=== PATIENT | male | born 1985 | race Caucasian/White ===

== ENCOUNTER 2016-08-21 10:40 | Emergency (ER) | payer SELFPAY ==
[2016-08-21] MEDS ORDERED: Sodium Chloride 0.9% 10 ML Syringe FLUSH PRN (11:18)
[2016-08-21] MEDS ORDERED: Ketorolac 30 MG/ML SDV IVPUSH ONE (11:19)
[2016-08-21] MEDS ORDERED: HYDROmorphone 1 MG/ML Syringe IVPUSH ONE (11:19)
[2016-08-21] MEDS ORDERED: Sodium Chloride 0.9% 1,000 ML IV SCH (11:30)
--- NOTE | 2016-08-21 11:40 | EDM.PDOC ---
ED HISTORY OF PRESENT ILLNESS - General Chief Complaint: Chest Pain Stated Complaint: CHEST PAIN/RESPIRATORY PROBLEMS Time Seen by Provider: 08/21/16 11:03 Source of Information: Reports: Patient History Limitations: Reports: No limitations - History of Present Illness INITIAL COMMENTS - FREE TEXT/NARRATIVE: The patient complains of back pain and shortness of breath. The pain radiates out to his chest. He also has been coughing up some phlegm. He also has some pain in the RUQ and right lower chest area. He was an alcoholic for over 10 years. He recently moved into a trailer that had mice and birds. He also has some anxiety issues. He feels warm like he has a fever but his temp is normal. He has no nausea or vomiting but his appetite is decreased. He did not injure his back and he has no numbness or weakness. He does smoke. He has no lung problems such as asthma. Timing/Duration: Reports: Week(s): Severity: severe Location, General: Reports: chest, back Quality: Reports: Sharp Improves with: Reports: None Worsens with: Reports: Breathing Associated Symptoms (General): Reports: chest pain, cough, cough w sputum, fever /chills, shortness of breath. Denies: headaches, nausea/vomiting - Related Data Allergies/ADRs: Allergies Allergy/AdvReac Type Severity Reaction Status Date / Time grass pollen Allergy Swelling Verified 08/21/16 10:54 Home Meds: Home Meds Naproxen [Naprosyn] 500 mg PO Q12HR #20 tablet 11/08/15 [Rx] Cyclobenzaprine [Flexeril] 10 mg PO TID PRN #20 tablet 08/21/16 [Rx] oxyCODONE HCl/Acetaminophen [Percocet 5-325 mg Tablet] 1 - 2 each PO Q6HR PRN # 20 tablet 08/21/16 [Rx] Past Medical History - Past Health History Medical/Surgical History: Denies Medical/Surgical History HEENT History: Reports: Impaired vision Other HEENT History: wears eyeglasses Cardiovascular History: Reports: Hypertension Other Cardiovascular History: states is recovering alcoholic and has HTN from the alcohol. Respiratory History: Reports: Bronchitis, recurrent, Pneumonia, recurrent Gastrointestinal History: Reports: GERD Other Gastrointestinal History: "history of a stomach ulcer" Other Genitourinary History: states has to drink cranberry juice every day. Musculoskeletal History: Reports: Back pain, chronic, Fracture Neurological History: Reports: Concussion, Head trauma, Migraines, Seizure Psychiatric History: Reports: Anxiety, Depression, Emotional problems, Hallucinations Hematologic History: Reports: Iron deficiency Other Hematologic History: states "I take iron pills daily." - Infectious Disease History Infectious Disease History: Reports: Chicken pox Social & Family History - Tobacco Use Smoking Status *Q: Current Every Day Smoker Years of Tobacco use: 14 Packs/Tins Daily: 0.5 Used Tobacco, but Quit: No Second Hand Smoke Exposure: Yes - Caffeine Use Caffeine Use: Reports: Coffee - Alcohol Use Days Per Week of Alcohol Use: 2 Number of Drinks Per Day: 12 Total Drinks Per Week: 24 - Recreational Drug Use Recreational Drug Use: Yes Drug Use in Last 12 Months: No Recreational Drug Type: Reports: Marijuana/Hashish Recreational Drug Use Frequency: Not Used In Over 6 Months - Living Situation & Occupation Living situation: Reports: with significant other Occupation: employed ED ROS GENERAL - Review of Systems Review Of Systems: See Below Constitutional: Reports: fever, weakness, fatigue. Denies: chills HEENT: Reports: No symptoms Respiratory: Reports: Shortness of Breath, Cough Cardiovascular: Reports: Chest pain Endocrine: Reports: no symptoms GI/Abdominal: Reports: No symptoms : Reports: no symptoms Musculoskeletal: Reports: back pain Skin: Reports: no symptoms Neurological: Reports: No Symptoms ED EXAM, GENERAL - Physical Exam Exam: See Below Exam Limited By: No limitations General Appearance: alert, no apparent distress Ears: normal external exam Nose: normal inspection Head: atraumatic, normocephalic Neck: normal inspection Respiratory/Chest: no respiratory distress, lungs clear, normal breath sounds Cardiovascular: regular rate, rhythm, no edema, no murmur GI/Abdominal: soft, non tender, no organomegaly, no mass Back Exam: other (Pain upon palpation to the right and left upper back) Neurological: alert, oriented, no motor/sensory deficits EKG INTERPRETATION EKG Date: 08/21/16 Time: 10:49 Rhythm: NSR Rate (beats/min): 95 [place]: normal P-wave: present QRS: normal ST-T: other (Normal early repol) QT: normal Course - Vital Signs Last Recorded V/S: Last Vital Signs Temp 98.2 F 08/21/16 10:40 Pulse 98 08/21/16 10:40 Resp 22 H 08/21/16 10:40 BP 135/87 08/21/16 10:40 Pulse Ox 98 08/21/16 10:40 - Orders/Labs/Meds Orders: Active Orders 24 hr Category Date Time Status Cardiac Monitoring [RC] . DIRECTED Care 08/21/16 11:18 Active EKG 12 Lead [EKG Documentation Completion] [RC] STAT Care 08/21/16 10:45 Active Oxygen Therapy [RC] PRN Care 08/21/16 11:18 Active Peripheral IV Care [RC] . DIRECTED Care 08/21/16 11:18 Active Sodium Chloride 0.9% [Normal Saline] 1,000 ml Med 08/21/16 11:30 Active IV .BOLUS Sodium Chloride 0.9% [Saline Flush] Med 08/21/16 11:18 Active 10 ml FLUSH ASDIRECTED PRN Peripheral IV Insertion Adult [OM.PC] Stat Oth 08/21/16 11:18 Ordered Medication Orders Sodium Chloride (Normal Saline) 1,000 mls @ 1,000 mls/hr IV .BOLUS ELIZABETH Last Admin: 08/21/16 12:22 Dose: 1,000 mls/hr Sodium Chloride (Saline Flush) 10 ml FLUSH ASDIRECTED PRN PRN Reason: Keep Vein Open Last Admin: 08/21/16 12:15 Dose: 10 ml Labs: Laboratory Tests 08/21/16 08/21/16 08/21/16 Range/Units 11:55 11:55 11:55 WBC 7.03 (4.23-9.07) K/mm3 RBC 5.09 (4.63-6.08) M/mm3 Hgb 15.6 (13.7-17.5) gm/L Hct 44.8 (40.1-51.0) % MCV 88.0 (79.0-92.2) fl MCH 30.6 (25.7-32.2) pg MCHC 34.8 (32.2-35.5) g/dl RDW Std Deviation 42.8 (35.1-43.9) fL Plt Count 216 (163-337) K/mm3 MPV 9.6 (9.4-12.3) fl Neut % (Auto) 51.6 (34.0-67.9) % Lymph % (Auto) 39.0 (21.8-53.1) % [place] % (Auto) 7.8 (5.3-12.2) % Eos % (Auto) 1.4 (0.8-7.0) Baso % (Auto) 0.1 (0.1-1.2) % Neut # 3.62 (1.78-5.38) K/mm3 Lymph # 2.74 (1.32-3.57) K/mm3 [place] # 0.55 (0.30-0.82) K/mm3 Eos # 0.10 (0.04-0.54) K/mm3 Baso # 0.01 (0.01-0.08) K/mm3 D-Dimer, Quantitative 0.19 (0.19-0.59) mg/L Sodium 143 (136-145) mEq/L Potassium 3.7 (3.5-5.1) mEq/L Chloride 104 (98-107) mEq/L Carbon Dioxide 29 (21-32) mEq/L Anion Gap 13.7 (5-15) BUN 7 (7-18) mg/dL Creatinine 0.9 (0.7-1.3) mg/dL Est Cr Clr Drug Dosing 118.92 mL/min Estimated GFR (MDRD) > 60 (>60) mL/min BUN/Creatinine Ratio 7.8 L (14-18) Glucose 99 (74-106) mg/dL Calcium 9.0 (8.5-10.1) mg/dL Total Bilirubin 0.7 (0.2-1.0) mg/dL AST 59 H (15-37) U/L ALT 81 H (16-63) U/L Alkaline Phosphatase 96 (46-116) U/L Troponin I < 0.017 (0.00-0.056) ng/mL Total Protein 7.6 (6.4-8.2) g/dl Albumin 4.7 (3.4-5.0) g/dl Globulin 2.9 gm/dL Albumin/Globulin Ratio 1.6 (1-2) Meds: Medications Generic Name Dose Route Start Last Admin Trade Name Freq PRN Reason Stop Dose Admin Sodium Chloride 1,000 mls @ 1,000 mls/hr 08/21/16 11:30 08/21/16 12:22 Normal Saline IV 1,000 mls/hr .BOLUS ELIZABETH Administration Sodium Chloride 10 ml 08/21/16 11:18 08/21/16 12:15 Saline Flush FLUSH 10 ml ASDIRECTED PRN Administration Keep Vein Open Discontinued Medications Generic Name Dose Route Start Last Admin Trade Name Flip PRN Reason Stop Dose Admin Hydromorphone HCl 1 mg 08/21/16 11:19 08/21/16 12:20 Dilaudid IVPUSH 08/21/16 11:20 1 mg ONETIME ONE Administration Ketorolac Tromethamine 30 mg 08/21/16 11:19 08/21/16 12:18 Toradol IVPUSH 08/21/16 11:20 30 mg ONETIME ONE Administration - Re-Assessments/Exams Free Text/Narrative Re-Assessment/Exam: 08/21/16 11:41 I ordered an IV NS 1L bolus, dilaudid 1mg IV, toradol 30mg IV, EKG, CXR, and labs. His EKG shows a NSR with no acute changes. 08/21/16 13:35 His CXR shows no pneumonia. His CBC looks good. His liver enzymes are slightly elevated. His troponin is negative. His influenza is negative. He feels better. I will give him some thing for his back pain. I feel that he has a URI with cough and back strain. Departure - Departure Time of Disposition: 13:40 Disposition: Home, Self-Care 01 Condition: good Clinical Impression: Viral URI with cough Thoracic myofascial strain Qualifiers: Encounter type: initial encounter Qualified Code(s): S29.019A - Strain of muscle and tendon of unspecified wall of thorax, initial encounter Prescriptions: oxyCODONE HCl/Acetaminophen [Percocet 5-325 mg Tablet] 1 - 2 each PO Q6HR PRN # 20 tablet PRN Reason: Pain Cyclobenzaprine [Flexeril] 10 mg PO TID PRN #20 tablet PRN Reason: Pain Referrals: Katy Manzo [Physician] - 1 Week Forms: ED Department Discharge Additional Instructions: Take the flexeril and percocet as needed for pain. Please return if you are worse. - My Orders Last 24 Hours: My Active Orders 08/21/16 10:45 EKG 12 Lead [EKG Documentation Completion] [RC] STAT 08/21/16 11:18 Cardiac Monitoring [RC] . DIRECTED Oxygen Therapy [RC] PRN Peripheral IV Care [RC] . DIRECTED Sodium Chloride 0.9% [Saline Flush] 10 ml FLUSH ASDIRECTED PRN Peripheral IV Insertion Adult [OM.PC] Stat 08/21/16 11:30 Sodium Chloride 0.9% [Normal Saline] 1,000 ml IV .BOLUS - Assessment/Plan Last 24 Hours: My Active Orders 08/21/16 10:45 EKG 12 Lead [EKG Documentation Completion] [RC] STAT 08/21/16 11:18 Cardiac Monitoring [RC] . DIRECTED Oxygen Therapy [RC] PRN Peripheral IV Care [RC] . DIRECTED Sodium Chloride 0.9% [Saline Flush] 10 ml FLUSH ASDIRECTED PRN Peripheral IV Insertion Adult [OM.PC] Stat 08/21/16 11:30 Sodium Chloride 0.9% [Normal Saline] 1,000 ml IV .BOLUS
--- NOTE | 2016-08-21 13:21 | CR ---
Chest: Two views of the chest were obtained. Comparison: Previous chest x-ray of 02/21/16. Heart size and mediastinum are normal. Lungs are clear. Mild scoliosis noted within the spine. Impression: 1. Incidental finding. Nothing acute is identified on two-view chest x-ray. Diagnostic code #1
[2016-08-21 13:56] VITALS: BP 139/77
== END 2016-08-21 14:00 | disposition home or self-care (01) ==
LOC: JD.ED 10:40
DX: S29.019A Strain of muscle and tendon of unspecified wall of thorax, initial encounter (principal); J06.9 Acute upper respiratory infection, unspecified; I10 Essential (primary) hypertension; K21.9 Gastro-esophageal reflux disease without esophagitis; F41.8 Other specified anxiety disorders; F17.210 Nicotine dependence, cigarettes, uncomplicated; X58.XXXA Exposure to other specified factors, initial encounter
CPT/HCPCS: 36415; 71020; 80053; 84484; 85025; 85379; 87804; 93005; 96361; 96374; 96375; 99284; J1170; J1885; J7040; J7050; 99285

== ENCOUNTER 2016-11-11 19:19 | Emergency (ER) | payer MEDICAID, OTHER ==
[2016-11-11 19:30] VITALS: BP 148/111
--- NOTE | 2016-11-11 19:31 | EDM.PDOC ---
ED HPI GENERAL MEDICAL PROBLEM - General Chief Complaint: Lower Extremity Injury/Pain Stated Complaint: right foot injury Time Seen by Provider: 11/11/16 19:31 - History of Present Illness INITIAL COMMENTS - FREE TEXT/NARRATIVE: 31-year-old male presents emergency room with a right foot injury. Yesterday the patient dropped a large toolbox weighing well over 200 pounds onto his right foot. He has been not able to bear weight on this since then. Given it time it has not improved. Patient also has an abrasion on his lateral ankle. No other injuries sustained with this incident. Right Feet Pain Score (Numeric/FACES): 9 - Related Data Allergies Allergy/AdvReac Type Severity Reaction Status Date / Time grass pollen Allergy Swelling Verified 08/21/16 10:54 Home Meds: Home Meds Naproxen [Naprosyn] 500 mg PO Q12HR #20 tablet 11/08/15 [Rx] Past Medical History - Past Health History Medical/Surgical History: Denies Medical/Surgical History HEENT History: Reports: Impaired Vision Other HEENT History: wears eyeglasses Cardiovascular History: Reports: Hypertension Other Cardiovascular History: states is recovering alcoholic and has HTN from the alcohol. Respiratory History: Reports: Bronchitis, Recurrent, Pneumonia, Recurrent Gastrointestinal History: Reports: GERD Other Gastrointestinal History: "history of a stomach ulcer" Other Genitourinary History: states has to drink cranberry juice every day. Musculoskeletal History: Reports: Back Pain, Chronic, Fracture Neurological History: Reports: Concussion, Head Trauma, Migraines, Seizure Psychiatric History: Reports: Anxiety, Depression, Emotional Problems, Hallucinations Hematologic History: Reports: Iron Deficiency Other Hematologic History: states "I take iron pills daily." - Infectious Disease History Infectious Disease History: Reports: Chicken Pox Social & Family History - Tobacco Use Smoking Status *Q: Current Every Day Smoker Years of Tobacco use: 14 Packs/Tins Daily: 0.5 Used Tobacco, but Quit: No Second Hand Smoke Exposure: Yes - Caffeine Use Caffeine Use: Reports: Coffee - Alcohol Use Days Per Week of Alcohol Use: 2 Number of Drinks Per Day: 12 Total Drinks Per Week: 24 - Recreational Drug Use Recreational Drug Use: Yes Drug Use in Last 12 Months: No Recreational Drug Type: Reports: Marijuana/Hashish Recreational Drug Use Frequency: Not Used In Over 6 Months - Living Situation & Occupation Living situation: Reports: with Significant Other Occupation: Employed Review of Systems - Review of Systems Review Of Systems: See Below Constitutional: Reports: No Symptoms Respiratory: Reports: No Symptoms Cardiovascular: Reports: No Symptoms GI/Abdominal: Reports: No Symptoms ED EXAM, GENERAL - Physical Exam Exam: See Below Exam Limited By: No Limitations General Appearance: Alert, No Apparent Distress, Other (He has significant pain with any sort of motion with his right foot) Respiratory/Chest: No Respiratory Distress, Lungs Clear, Normal Breath Sounds Cardiovascular: Regular Rate, Rhythm, No Edema, No Murmur Extremities: Other (Examination of his right lower leg reveals an abrasion in near the mid foot in the area above the proximal metatarsals this is exquisitely tender the patient has intact neurovascular sensation of the foot dorsalis pedis posterior tibial pulses are equal and appropriate. Sensation is intact in the distal foot. Active range of motion passive range of motion are limited because of discomfort. Palpation around the ankle is nontender other than the tenderness around the abrasion over the lateral malleolus.) Course - Vital Signs Last Recorded V/S: Last Vital Signs Temp 36.8 C 11/11/16 19:29 Pulse 103 H 11/11/16 19:29 Resp 20 11/11/16 19:29 BP 148/111 H 11/11/16 19:29 Pulse Ox 96 11/11/16 19:29 - Orders/Labs/Meds Orders: Active Orders 24 hr Category Date Time Status Ankle Min 3V Rt [CR] Stat Exams 11/11/16 19:45 Taken Foot Comp Min 3V Rt [CR] Stat Exams 11/11/16 19:45 Taken Durable Medical Equipment for Discharge [DME for Oth 11/11/16 22:16 Ordered Discharge] [COMM] Stat - Re-Assessments/Exams Free Text/Narrative Re-Assessment/Exam: 11/11/16 22:17 X-ray examination the foot and ankle reveals no acute changes to the ankle patient has multiple fractures in the foot mostly involving second third and fourth bases of the metatarsals these are minimally displaced I cannot exclude a fracture at the base of the fifth metatarsal. Possible fracture on the mid cuneiform but I think this is less likely. Case and x-rays reviewed with Dr. Mcgrath who recommends not weight bearing and followup in the office tomorrow. Patient will be discharged with crutches he had a posterior splint applied by me normal neurovascular status afterwards he will remain nonweightbearing with the aid of crutches. He'll be discharged with [place] 5/325 dispensed from the machine in the waiting room #20 one or 2 every 6 hours as needed. Departure - Departure Time of Disposition: 22:21 Disposition: Home, Self-Care 01 Clinical Impression: Metatarsal fracture - Discharge Information Instructions: Metatarsal Fracture Referrals: Herminia Mckay NP [Primary Care Provider] - Rigoberto Mcgrath MD [Physician] - Forms: ED Department Discharge Additional Instructions: Return to the emergency room with any questions or problems. Followup with Dr. Mcgrath tomorrow call first thing in the morning for an appointment. You've been started on [place] this is a pain medication take one or 2 every 6 hours as needed for pain allow 12 hours after using this medication before driving or returning to work. If using this medication on a regular basis use a stool softener as it can cause constipation. Use the crutches all the time. Keep the splint on all the time if he developed numbness or tingling or foot loosen the Giacomo wrap. He may also return to the emergency room for recheck if you get a persistent throbbing sensation or worsening pain. - My Orders Last 24 Hours: My Active Orders 11/11/16 19:45 Ankle Min 3V Rt [CR] Stat Foot Comp Min 3V Rt [CR] Stat 11/11/16 22:16 Durable Medical Equipment for Discharge [DME for Discharge] [COMM] Stat - Assessment/Plan Last 24 Hours: My Active Orders 11/11/16 19:45 Ankle Min 3V Rt [CR] Stat Foot Comp Min 3V Rt [CR] Stat 11/11/16 22:16 Durable Medical Equipment for Discharge [DME for Discharge] [COMM] Stat
--- NOTE | 2016-11-12 13:03 | CR ---
Right foot: Four views of the right foot were obtained. Comparison: No previous study. Joint spaces are preserved. Fractures are identified within the base of the second, third and fourth metatarsals. No additional fracture or other abnormality is seen. Soft tissue swelling is noted. Impression: 1. Fractures within the base of the second, third and fourth metatarsals. 2. Soft tissue swelling. Diagnostic code #3
--- NOTE | 2016-11-12 13:03 | CR ---
Right ankle: Four views of the right ankle were obtained. Comparison: No previous study. Ankle mortise is symmetric. No acute fracture, dislocation or other bony abnormality is seen. Mild soft tissue swelling appears to be present. Impression: 1. Mild soft tissue swelling. No acute bony abnormality is identified on right ankle study. Diagnostic code #2
== END 2016-11-11 22:30 | disposition home or self-care (01) ==
LOC: JD.ED 19:19
DX: S92.321A Displaced fracture of second metatarsal bone, right foot, initial encounter for closed fracture (principal); S92.331A Displaced fracture of third metatarsal bone, right foot, initial encounter for closed fracture; S92.341A Displaced fracture of fourth metatarsal bone, right foot, initial encounter for closed fracture; I10 Essential (primary) hypertension; K21.9 Gastro-esophageal reflux disease without esophagitis; F41.9 Anxiety disorder, unspecified; F32.9 Major depressive disorder, single episode, unspecified; F17.210 Nicotine dependence, cigarettes, uncomplicated; W20.8XXA Other cause of strike by thrown, projected or falling object, initial encounter
CPT/HCPCS: 29515; 73610-26-RT; 73610-RT; 73630-26-RT; 73630-RT; 99283-25

== ENCOUNTER 2017-04-08 09:38 | Emergency (ER) | payer MEDICAID ==
[2017-04-08 11:09] VITALS: BP 145/92
--- NOTE | 2017-04-08 13:01 | EDM.PDOC ---
ED HPI GENERAL MEDICAL PROBLEM - General Chief Complaint: Back Pain or Injury Stated Complaint: UPPER BACK AND LT ARM PAIN WITH NUMBNESS Time Seen by Provider: 04/08/17 10:52 Source of Information: Reports: Patient, RN Notes Reviewed - History of Present Illness INITIAL COMMENTS - FREE TEXT/NARRATIVE: 32-year-old male comes in with left back pain and also numbness and tingling of the left upper extremity. He states she's been having the back pain for 2 years , no recent injury. Ever he has had numbness and tingling of the left arm and hand since last evening. That continues today. He's worried about possible heart attack. No chest pain or difficulty breathing. Left Upper Back Pain Score (Numeric/FACES): 9 - Related Data Allergies Allergy/AdvReac Type Severity Reaction Status Date / Time grass pollen Allergy Swelling Verified 04/08/17 09:47 Home Meds: Home Meds Naproxen [Naprosyn] 500 mg PO Q12HR #20 tablet 11/08/15 [Rx] Past Medical History - Past Health History Medical/Surgical History: Denies Medical/Surgical History HEENT History: Reports: Impaired Vision Other HEENT History: wears eyeglasses Cardiovascular History: Reports: Hypertension Other Cardiovascular History: states is recovering alcoholic and has HTN from the alcohol. Respiratory History: Reports: Bronchitis, Recurrent, Pneumonia, Recurrent Gastrointestinal History: Reports: GERD Other Gastrointestinal History: "history of a stomach ulcer" Other Genitourinary History: states has to drink cranberry juice every day. Musculoskeletal History: Reports: Back Pain, Chronic, Fracture Neurological History: Reports: Concussion, Head Trauma, Migraines, Seizure Psychiatric History: Reports: Anxiety, Depression, Emotional Problems, Hallucinations Hematologic History: Reports: Iron Deficiency Other Hematologic History: states "I take iron pills daily." - Infectious Disease History Infectious Disease History: Reports: Chicken Pox Social & Family History - Tobacco Use Smoking Status *Q: Current Every Day Smoker Years of Tobacco use: 18 Packs/Tins Daily: 0.5 Used Tobacco, but Quit: No Second Hand Smoke Exposure: No - Caffeine Use Caffeine Use: Reports: Coffee - Alcohol Use Days Per Week of Alcohol Use: 7 Number of Drinks Per Day: 20 Total Drinks Per Week: 140 Date of Last Drink: 04/08/17 Time of Last Drink: 08:00 - Recreational Drug Use Recreational Drug Use: No Drug Use in Last 12 Months: No Recreational Drug Type: Reports: Marijuana/Hashish Recreational Drug Use Frequency: Not Used In Over 6 Months - Living Situation & Occupation Living situation: Reports: with Significant Other Occupation: Employed ED ROS GENERAL - Review of Systems Review Of Systems: See Below Constitutional: Denies: Fever, Chills, Diaphoresis HEENT: Reports: No Symptoms Respiratory: Denies: Shortness of Breath, Pleuritic Chest Pain Cardiovascular: Denies: Chest Pain GI/Abdominal: Denies: Abdominal Pain, Nausea, Vomiting Musculoskeletal: Reports: Neck Pain (Mild left base), Back Pain (Left-sided). Denies: Arm Pain Skin: Reports: No Symptoms Neurological: Reports: Numbness, Tingling (Left upper extremity left hand and left upper extremity). Denies: Weakness ED EXAM,LOWER BACK PAIN/INJURY - Physical Exam Exam: See Below General Appearance: Other (My first walked into the room he was sleeping soundly , did not easily arouse, does not appear to be in acute pain) Eye Exam: Bilateral Eye: PERRL Head: Atraumatic. No: Facial Swelling Neck: Supple Respiratory/Chest: No Respiratory Distress, Lungs Clear. No: Rhonchi, Wheezing Cardiovascular: Regular Rate, Rhythm Back Exam: Other (There is tenderness of the left mid back and left lower back) . No: Vertebral Tenderness Extremities: Normal Inspection (, no visible spasm), Normal Range of Motion Neurological: Alert, No Motor/Sensory Deficits, Oriented x 3 Skin Exam: Warm, Dry, Normal Color Course - Vital Signs Last Recorded V/S: Last Vital Signs Temp 96.8 F 04/08/17 09:47 Pulse 96 04/08/17 09:47 Resp 18 04/08/17 09:47 BP 145/92 H 04/08/17 09:47 Pulse Ox 98 04/08/17 09:47 - Orders/Labs/Meds Orders: Active Orders 24 hr Category Date Time Status EKG 12 Lead [EKG Documentation Completion] [RC] STAT Care 04/08/17 11:06 Active CBC WITH AUTO DIFF [HEME] Stat Lab 04/08/17 11:06 Ordered COMPREHENSIVE METABOLIC PN,CMP [CHEM] Stat Lab 04/08/17 11:06 Ordered - Re-Assessments/Exams Free Text/Narrative Re-Assessment/Exam: 04/08/17 11:25. I did tell patient that numbness and tingling is not a cardiac symptom and therefore I felt confident to is not having heart attack. However I advised to do check an EKG and checks labs to make sure chemistries are okay. This was all ordered. Short time later I was informed that patient had left the department without notifying anyone of his departure. Departure - Departure Time of Disposition: 11:30 Disposition: Home, Self-Care 01 Clinical Impression: Paresthesia of left upper extremity Back pain Qualifiers: Back pain location: low back pain Chronicity: acute Back pain laterality: left - Discharge Information Referrals: PCP,None [Primary Care Provider] - Forms: ED Department Discharge - My Orders Last 24 Hours: My Active Orders 04/08/17 11:06 EKG 12 Lead [EKG Documentation Completion] [RC] STAT CBC WITH AUTO DIFF [HEME] Stat COMPREHENSIVE METABOLIC PN,CMP [CHEM] Stat - Assessment/Plan Last 24 Hours: My Active Orders 04/08/17 11:06 EKG 12 Lead [EKG Documentation Completion] [RC] STAT CBC WITH AUTO DIFF [HEME] Stat COMPREHENSIVE METABOLIC PN,CMP [CHEM] Stat
== END 2017-04-08 11:30 | disposition home or self-care (01) ==
LOC: JD.ED 09:38
DX: M54.5 Low back pain (principal); R20.2 Paresthesia of skin; F17.210 Nicotine dependence, cigarettes, uncomplicated
CPT/HCPCS: 99283; 99284-25

== ENCOUNTER 2017-04-10 13:05 | Emergency (ER) | payer MEDICAID ==
[2017-04-10 13:16] VITALS: BP 137/92
[2017-04-10] MEDS ORDERED: Lactated Ringers 1,000 ML IV ONE (14:32)
[2017-04-10] MEDS ORDERED: Ondansetron 4 MG/2 ML SDV IVPUSH ONE (14:33)
[2017-04-10] MEDS ORDERED: Sodium Chloride 0.9% 10 ML Syringe FLUSH PRN (14:33)
[2017-04-10] MEDS ORDERED: Ketorolac 30 MG/ML SDV IVPUSH ONE (14:33)
[2017-04-10] MEDS ORDERED: LORazepam 2 MG/ML MDV IVPUSH ONE (15:50)
[2017-04-10 15:51] LABS: ACETAMINOPHEN 0 ug/mL (10-30)
[2017-04-10] MEDS ORDERED: Folic Acid 1 MG Tab PO ONE (16:02)
--- NOTE | 2017-04-10 16:59 | EDM.PDOCBH ---
ED HPI GENERAL MEDICAL PROBLEM - General Chief Complaint: Drug or Alcohol Abuse Stated Complaint: ALCOHOL DETOX Time Seen by Provider: 04/10/17 14:00 Source of Information: Reports: Patient, Family History Limitations: Reports: No Limitations - History of Present Illness INITIAL COMMENTS - FREE TEXT/NARRATIVE: 32-year-old male presents with his mother and his significant other for evaluation and treatment of alcoholism. Patient was not initially very forthcoming with information with his mother and significant other in the room. I asked him to leave and obtain a history from patient's himself when he was more forthcoming with information. Per patient reports that he will go on binges of drinking. He states that he was sober for about 4-6 weeks prior to Saturday. States on Saturday he drank at least 30 shooters. He reports he does have trouble with alcoholism and is an alcoholic. He states that after a cates he will often drink the following days to help him feel better. He states he was drinking daily since Saturday. Reports he had about 5 or 6 shots today prior to coming to the ER. He reports that he has sobered up nearly every month. Reports he has drank since around the age of 18. Prefers to drink hard liquor. Patient reports he did have a seizure about 2 years ago while in [place]. He states he almost always has shakes when he madan up. He reports that he always has abdominal pain in the left lower side, even when sober. He states that he is having hallucinations of hearing things and seeing things. Reports that he sees shadows. He states they have these all the time with he is intoxicated or sober. He also reports nausea and vomiting. He states currently he has pain "everywhere ". States he has a "vice on his head." He also reports feeling like his head is floating. He states he has numbness and tingling in the extremities and has been feeling this for quite some time. Patient reports he does feel depressed about his current situation. If he does think about suicide but has no active suicide plan. He denies any homicidal thoughts or plan. He denies any drug use. States he smokes about a third of a pack a day. Middle Back Pain Score (Numeric/FACES): 7 - Related Data Allergies Allergy/AdvReac Type Severity Reaction Status Date / Time grass pollen Allergy Swelling Verified 04/10/17 13:16 Home Meds: Home Meds Naproxen [Naprosyn] 500 mg PO Q12HR #20 tablet 11/08/15 [Rx] Past Medical History - Past Health History Medical/Surgical History: Denies Medical/Surgical History HEENT History: Reports: Impaired Vision Other HEENT History: wears eyeglasses Cardiovascular History: Reports: Hypertension Other Cardiovascular History: states is recovering alcoholic and has HTN from the alcohol. Respiratory History: Reports: Bronchitis, Recurrent, Pneumonia, Recurrent Gastrointestinal History: Reports: GERD Other Gastrointestinal History: "history of a stomach ulcer" Other Genitourinary History: states has to drink cranberry juice every day. Musculoskeletal History: Reports: Back Pain, Chronic, Fracture Neurological History: Reports: Concussion, Head Trauma, Migraines, Seizure Psychiatric History: Reports: Addiction, Anxiety, Depression, Emotional Problems , Hallucinations Hematologic History: Reports: Iron Deficiency Other Hematologic History: states "I take iron pills daily." - Infectious Disease History Infectious Disease History: Reports: Chicken Pox Social & Family History - Tobacco Use Smoking Status *Q: Current Every Day Smoker Years of Tobacco use: 18 Packs/Tins Daily: 0.5 Used Tobacco, but Quit: No Second Hand Smoke Exposure: No - Caffeine Use Caffeine Use: Reports: Coffee, Energy Drinks - Alcohol Use Days Per Week of Alcohol Use: 7 Number of Drinks Per Day: 12 Total Drinks Per Week: 84 Date of Last Drink: 04/10/17 Time of Last Drink: 12:00 - Recreational Drug Use Recreational Drug Use: No Drug Use in Last 12 Months: No Recreational Drug Type: Reports: Marijuana/Hashish Recreational Drug Use Frequency: Not Used In Over 6 Months - Living Situation & Occupation Living situation: Reports: with Significant Other Occupation: Employed ED ROS GENERAL - Review of Systems Review Of Systems: See Below Constitutional: Denies: Fever, Chills GI/Abdominal: Reports: Nausea Neurological: Reports: Headache, Numbness, Seizure (none recently reports he had a seizure about 2 years ago), Tingling, Tremors Psychiatric: Reports: Depression, Hallucinations (auditory and visual - reports seeing shadows), Suicidal Ideation (thinks about suicide but not actively suicidal; no plan). Denies: Homicidal Ideation ED EXAM, BEHAVIORAL HEALTH - Physical Exam Exam: See Below Exam Limited By: Intoxication General Appearance: Alert, WD/WN, No Apparent Distress Eye Exam: Bilateral Eye: PERRL Ears: Normal External Exam Throat/Mouth: Normal Inspection, Normal Lips, Normal Voice, No Airway Compromise Respiratory/Chest: No Respiratory Distress, Lungs Clear, Normal Breath Sounds Cardiovascular: Normal Peripheral Pulses, Regular Rate, Rhythm, No Murmur GI/Abdominal: Normal Bowel Sounds, Soft, Non-Tender Neurological: Alert, Normal Mood/Affect, Normal Cognition Psychiatric: Alert, Normal Affect, Suicidal Thoughts, Auditory Hallucinations, Visual Hallucinations. No: Agitated, Non-Communicative, Poor Eye Contact, Homicidal Thoughts, Suicidal Plan, Threatening Behavior Skin Exam: Warm, Dry, Normal color COURSE, BEHAVIORAL HEALTH COMP - Course Vital Signs: Last Vital Signs Temp 37.0 C 04/10/17 13:12 Pulse 97 04/10/17 13:12 Resp 16 04/10/17 13:12 BP 137/92 H 04/10/17 13:12 Pulse Ox 99 04/10/17 13:12 Orders, Labs, Meds: Active Orders 24 hr Category Date Time Status Cardiac Monitoring [RC] . DIRECTED Care 04/10/17 14:33 Active Peripheral IV Care [RC] . DIRECTED Care 04/10/17 14:34 Active Peripheral IV Insertion Adult [OM.PC] Routine Oth 04/10/17 14:32 Ordered Laboratory Tests 04/10/17 04/10/17 04/10/17 Range/Units 13:15 13:15 13:15 WBC 8.26 (4.23-9.07) K/mm3 RBC 5.21 (4.63-6.08) M/mm3 Hgb 16.1 (13.7-17.5) gm/L Hct 45.3 (40.1-51.0) % MCV 86.9 (79.0-92.2) fl MCH 30.9 (25.7-32.2) pg MCHC 35.5 (32.2-35.5) g/dl RDW Std Deviation 42.0 (35.1-43.9) fL Plt Count 266 (163-337) K/mm3 MPV 9.5 (9.4-12.3) fl Neutrophils % (Manual) 44 (40-60) % Band Neutrophils % 0 (0-10) % Lymphocytes % (Manual) 46 H (20-40) % Atypical Lymphs % 6 % Monocytes % (Manual) 3 (2-10) % Eosinophils % (Manual) 0 L (0.8-7.0) % Basophils % (Manual) 1 (0.2-1.2) Platelet Estimate Adequate Plt Morphology Comment Normal RBC Morph Comment Normal PT 10.8 (8.0-13.0) SECONDS INR 0.99 APTT 26 (22-36) SECONDS Sodium 147 H (136-145) mEq/L Potassium 3.5 (3.5-5.1) mEq/L Chloride 107 (98-107) mEq/L Carbon Dioxide 28 (21-32) mEq/L Anion Gap 15.5 H (5-15) BUN 12 (7-18) mg/dL Creatinine 1.1 (0.7-1.3) mg/dL Est Cr Clr Drug Dosing 99.55 mL/min Estimated GFR (MDRD) > 60 (>60) mL/min BUN/Creatinine Ratio 10.9 L (14-18) Glucose 101 (74-106) mg/dL Calcium 8.8 (8.5-10.1) mg/dL Magnesium 2.1 (1.8-2.4) mg/dl Total Bilirubin 0.5 (0.2-1.0) mg/dL AST 28 (15-37) U/L ALT 36 (16-63) U/L Alkaline Phosphatase 95 (46-116) U/L C-Reactive Protein < 0.2 (<1.0) mg/dL Total Protein 7.7 (6.4-8.2) g/dl Albumin 4.4 (3.4-5.0) g/dl Globulin 3.3 gm/dL Albumin/Globulin Ratio 1.3 (1-2) Lipase 133 (73-393) U/L Vitamin B12 (193-986) pg/ml Folate (8.6-58.9) ng/mL TSH 3rd Generation 1.295 (0.358-3.74) uIU/mL Urine Color (Yellow) Urine Appearance (Clear) Urine pH (5.0-8.0) Ur Specific Parker (1.005-1.030) Urine Protein (Negative) Urine Glucose (UA) (Negative) Urine Ketones (Negative) Urine Occult Blood (Negative) Urine Nitrite (Negative) Urine Bilirubin (Negative) Urine Urobilinogen (0.2-1.0) Ur Leukocyte Esterase (Negative) Urine RBC (0-5) /hpf Urine WBC (0-5) /hpf Ur Epithelial Cells (0-5) /hpf Urine Bacteria (FEW) /hpf Urine Mucus (FEW) /hpf Salicylates (2.8-20) mg/dL Urine Opiates Screen (NEGATIVE) Ur Buprenorphine Scrn (NEGATIVE) Ur Oxycodone Screen (NEGATIVE) Urine Methadone Screen (NEGATIVE) Ur Propoxyphene Screen (NEGATIVE) Acetaminophen 0 L (10-30) ug/mL Ur Barbiturates Screen (NEGATIVE) Ur Tricyclics Screen (NEGATIVE) Ur Phencyclidine Scrn (NEGATIVE) Ur Amphetamine Screen (NEGATIVE) U Methamphetamines Scrn (NEGATIVE) U Benzodiazepines Scrn (NEGATIVE) U Cocaine Metab Screen (NEGATIVE) U Marijuana (THC) Screen (NEGATIVE) Ethyl Alcohol 0.37 (0.00) gm% 04/10/17 04/10/17 04/10/17 Range/Units 13:15 14:14 14:14 WBC (4.23-9.07) K/mm3 RBC (4.63-6.08) M/mm3 Hgb (13.7-17.5) gm/L Hct (40.1-51.0) % MCV (79.0-92.2) fl MCH (25.7-32.2) pg MCHC (32.2-35.5) g/dl RDW Std Deviation (35.1-43.9) fL Plt Count (163-337) K/mm3 MPV (9.4-12.3) fl Neutrophils % (Manual) (40-60) % Band Neutrophils % (0-10) % Lymphocytes % (Manual) (20-40) % Atypical Lymphs % % Monocytes % (Manual) (2-10) % Eosinophils % (Manual) (0.8-7.0) % Basophils % (Manual) (0.2-1.2) Platelet Estimate Plt Morphology Comment RBC Morph Comment PT (8.0-13.0) SECONDS INR APTT (22-36) SECONDS Sodium (136-145) mEq/L Potassium (3.5-5.1) mEq/L Chloride (98-107) mEq/L Carbon Dioxide (21-32) mEq/L Anion Gap (5-15) BUN (7-18) mg/dL Creatinine (0.7-1.3) mg/dL Est Cr Clr Drug Dosing mL/min Estimated GFR (MDRD) (>60) mL/min BUN/Creatinine Ratio (14-18) Glucose (74-106) mg/dL Calcium (8.5-10.1) mg/dL Magnesium (1.8-2.4) mg/dl Total Bilirubin (0.2-1.0) mg/dL AST (15-37) U/L ALT (16-63) U/L Alkaline Phosphatase (46-116) U/L C-Reactive Protein (<1.0) mg/dL Total Protein (6.4-8.2) g/dl Albumin (3.4-5.0) g/dl Globulin gm/dL Albumin/Globulin Ratio (1-2) Lipase (73-393) U/L Vitamin B12 341 (193-986) pg/ml Folate 2.9 L (8.6-58.9) ng/mL TSH 3rd Generation (0.358-3.74) uIU/mL Urine Color Yellow (Yellow) Urine Appearance Clear (Clear) Urine pH 7.0 (5.0-8.0) Ur Specific Parker 1.010 (1.005-1.030) Urine Protein Negative (Negative) Urine Glucose (UA) Negative (Negative) Urine Ketones Negative (Negative) Urine Occult Blood Negative (Negative) Urine Nitrite Negative (Negative) Urine Bilirubin Negative (Negative) Urine Urobilinogen 0.2 (0.2-1.0) Ur Leukocyte Esterase Negative (Negative) Urine RBC Not seen (0-5) /hpf Urine WBC Not seen (0-5) /hpf Ur Epithelial Cells 0-5 (0-5) /hpf Urine Bacteria Not seen (FEW) /hpf Urine Mucus Not seen (FEW) /hpf Salicylates 2.3 L (2.8-20) mg/dL Urine Opiates Screen Negative (NEGATIVE) Ur Buprenorphine Scrn Negative (NEGATIVE) Ur Oxycodone Screen Negative (NEGATIVE) Urine Methadone Screen Negative (NEGATIVE) Ur Propoxyphene Screen Negative (NEGATIVE) Acetaminophen (10-30) ug/mL Ur Barbiturates Screen Negative (NEGATIVE) Ur Tricyclics Screen Negative (NEGATIVE) Ur Phencyclidine Scrn Negative (NEGATIVE) Ur Amphetamine Screen Negative (NEGATIVE) U Methamphetamines Scrn Negative (NEGATIVE) U Benzodiazepines Scrn Negative (NEGATIVE) U Cocaine Metab Screen Negative (NEGATIVE) U Marijuana (THC) Screen Negative (NEGATIVE) Ethyl Alcohol (0.00) gm% Medications Discontinued Medications Generic Name Dose Route Start Last Admin Trade Name Flip PRN Reason Stop Dose Admin Folic Acid 1 mg 04/10/17 16:02 04/10/17 17:00 Folic Acid PO 04/10/17 16:03 Not Given ONETIME ONE Lactated Ringer's 1,000 mls @ 999 mls/hr 04/10/17 14:32 04/10/17 14:45 Ringers, Lactated IV 04/10/17 15:32 999 mls/hr .BOLUS ONE Administration Ketorolac Tromethamine 30 mg 04/10/17 14:33 04/10/17 14:45 Toradol IVPUSH 04/10/17 14:34 30 mg ONETIME ONE Administration Lorazepam 1 mg 04/10/17 15:50 04/10/17 15:54 Ativan IVPUSH 04/10/17 15:51 1 mg ONETIME ONE Administration Ondansetron HCl 4 mg 04/10/17 14:33 04/10/17 14:45 Zofran IVPUSH 04/10/17 14:34 4 mg ONETIME ONE Administration Sodium Chloride 10 ml 04/10/17 14:33 04/10/17 14:43 Saline Flush FLUSH 10 ml ASDIRECTED PRN Administration Keep Vein Open Re-Assessment/Re-Exam: 17:20 Patient's labs have returned. His alcohol is elevated at 0.37. He will likely need about 24 hours to become completely sober. His folic acid is low at 2.9. He reports to me that he takes folic acid daily. He also states he takes some fish oil daily and Xanax. I did give him some folic acid here in the ER. At this point I discussed with the patient as disposition. I feel he would be a good candidate to come in to the hospital for detox with subsequent care at another facility whether that be outpatient or inpatient. I informed him that most the time with these detox we have them see on-call psychiatry and a substance abuse counselor. They then determine whether he should go after his hospitalization. Given his history of seizures, tremors and hallucinations he is possible to have DTs. I did inform that DTs are deadly. I encouraged him to come into the hospital for detox with likely follow-up care at another facility. Patient reports to me he does not want to come in to the hospital. He states he is here only because his significant other and mother are forcing him here. He states that he madan up nearly every month on his own without any problems. He would like to go home tonight and sober up. He states hospitals make him anxious and he does not want to stay here. He states he would like to follow-up with [facility] or [facility] as an outpatient but he does not want to come [facility] the [facility]. At this point I do not feel he is committable. He states he is depressed and states he thinks about suicide but he is not actively suicidal and has no plan. I did educate him that his failure rate is extremely high to try detox on his own. He will likely not be able to accomplish this. He states that he has done this several times before and can do it again. At this point I have no reason to make the patient come in for treatment. He was encouraged to return if his symptoms change or worsen. Otherwise he can follow-up with [facility] and [facility] as an outpatient. I discussed this with the patient's mother and his significant other. I informed them if they would like to go through the committal process they can talk to the states real estate attorney. His mom does state that they contacted [facility] and they were instructed to come to the ER. They were given paperwork for to start the committal process. I encouraged them to do this. I informed them that I cannot make him stay in the hospital [facility]. At this point he would like to go home. He does have a safe ride home. He does have some and to monitor him at home. Therefore I feel he can safely go home but he is instructed to return the ER if symptoms change or worsen. Departure - Departure Time of Disposition: 17:22 Disposition: Home, Self-Care 01 Condition: Fair Clinical Impression: Alcohol abuse Alcohol intoxication Qualifiers: Complication of substance-induced condition: uncomplicated Qualified Code(s): F10.120 - Alcohol abuse with intoxication, uncomplicated - Discharge Information Instructions: Alcohol Intoxication, [id number] Referrals: PCP,None [Primary Care Provider] - Additional Instructions: Follow-up with [facility]. Saturday through at 8 AM they have open evaluation. Go there right away at 8 AM for an evaluation. I also recommend you see a substance abuse counselor such as [facility]. Please call [phone] to schedule with her. We recommend that you stop drinking alcohol. you will have a happier and healthier life if you stop drinking alcohol. Continues taking your folic acid supplementation. I also recommend you establish with a primary care provider if you do not have one. Recommend Dr. Palacio at the [facility]. Please call [phone] to schedule him. Please return to the ER if your symptoms change or worsen. - My Orders Last 24 Hours: My Active Orders 04/10/17 14:32 Peripheral IV Insertion Adult [OM.PC] Routine 04/10/17 14:33 Cardiac Monitoring [RC] . DIRECTED 04/10/17 14:34 Peripheral IV Care [RC] . DIRECTED - Assessment/Plan Last 24 Hours: My Active Orders 04/10/17 14:32 Peripheral IV Insertion Adult [OM.PC] Routine 04/10/17 14:33 Cardiac Monitoring [RC] . DIRECTED 04/10/17 14:34 Peripheral IV Care [RC] . DIRECTED
== END 2017-04-10 17:19 | disposition home or self-care (01) ==
LOC: JD.ED 13:05
DX: F10.120 Alcohol abuse with intoxication, uncomplicated (principal); Y90.1 Blood alcohol level of 20-39 mg/100 ml; I10 Essential (primary) hypertension; F17.210 Nicotine dependence, cigarettes, uncomplicated; Z91.048 Other nonmedicinal substance allergy status
CPT/HCPCS: 36415; 80053; 80306; 81001; 82607; 82746; 83690; 83735; 84443; 85025; 85610; 85730; 86140; 96361; 96374; 96375; 99285; G0480; J1885; J2060; J2405; J7050; J7120

== ENCOUNTER 2017-07-05 11:49 | Emergency (ER) | payer MEDICAID ==
[2017-07-05 12:08] VITALS: BP 129/84
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
--- NOTE | 2017-07-05 13:19 | CT ---
CT facial bones Technique: Multiple axial sections through the facial bones were obtained. Reconstructed coronal and sagittal images were also obtained. Comparison: No previous facial bone study is available. Findings: Minimal mucosal thickening noted inferiorly within both maxillary sinuses. Mastoid sinuses and other paranasal sinuses are clear. No facial bone fracture is identified. Numerous dental caries are present. Several lucencies are also seen around the roots of several teeth and difficult to exclude abscess if patient has correlating symptoms. Impression: 1. Dental disease as noted above. 2. Minimal sinus findings within the maxillary sinuses which are incidental. 3. No acute facial bone fracture is identified. Diagnostic code #3
--- NOTE | 2017-07-05 13:22 | CT ---
Head CT Technique: Multiple axial sections through the brain were obtained. Intravenous contrast was not utilized. Comparison: Prior head CT study of 09/16/13. Findings: Ventricles along the basal cisterns and sulci over the convexities are within normal limits for the patient's age. No abnormal parenchymal densities are seen. No evidence of intracranial hemorrhage. No midline shift or mass effect is seen. Bone window settings were reviewed which shows no acute calvarial abnormality. Soft tissue swelling is noted within the right periorbital region. Impression: 1. Soft tissue swelling within the right periorbital region. 2. No acute intracranial abnormality is appreciated. Diagnostic code #2
--- NOTE | 2017-07-05 14:14 | CR ---
Right hand: Four views of the right hand were obtained as well as an additional lateral view of the fifth finger. Joint spaces are maintained. No acute fracture or other bony abnormality is seen. Impression: 1. No abnormality is identified on right hand exam. Diagnostic code #1
== END 2017-07-05 13:54 | disposition home or self-care (01) ==
LOC: JD.ED 11:49
DX: S09.22XA Traumatic rupture of left ear drum, initial encounter (principal); S51.852A Open bite of left forearm, initial encounter; S69.91XA Unspecified injury of right wrist, hand and finger(s), initial encounter; Z91.09 Other allergy status, other than to drugs and biological substances; Y04.2XXA Assault by strike against or bumped into by another person, initial encounter
CPT/HCPCS: 70450; 70450-26; 70486; 70486-26; 73130-26-RT; 73130-RT; 99284; 99284-25

== ENCOUNTER 2017-10-28 12:13 | Emergency (ER) | payer MEDICAID ==
[2017-10-28] MEDS ORDERED: Sodium Chloride 0.9% 10 ML Syringe FLUSH PRN (12:21)
[2017-10-28] MEDS ORDERED: Thiamine 100 MG Tab PO ONE (12:21)
[2017-10-28] MEDS ORDERED: Folic Acid 1 MG Tab PO ONE (12:21)
[2017-10-28] MEDS ORDERED: LORazepam 2 MG/ML SDV IVPUSH ONE (12:21)
[2017-10-28 12:30] VITALS: BP 136/92
[2017-10-28] MEDS ORDERED: Sodium Chloride 0.9% 1,000 ML IV SCH (12:30)
[2017-10-28] MEDS ORDERED: Pantoprazole 40 MG Vial IVPUSH ONE (12:44)
[2017-10-28] MEDS ORDERED: Alum Hydrox/Mag Hydrox/Simeth 30 ML, Lidocaine 2% 15 ML PO ONE ×2 (12:44)
--- NOTE | 2017-10-28 12:52 | EDM.PDOCBH ---
ED HPI GENERAL MEDICAL PROBLEM - General Chief Complaint: Drug or Alcohol Abuse Stated Complaint: ALCOHOL WITHDRAWAL Time Seen by Provider: 10/28/17 12:30 Source of Information: Reports: Patient, Other (girlfriend) History Limitations: Reports: No Limitations - History of Present Illness INITIAL COMMENTS - FREE TEXT/NARRATIVE: Patient is a 32-year-old male presents ED complaining of chronic alcohol abuse with suicidal thoughts. Patient is wishing inpatient detox and evaluation for alcohol abuse and also anxiety/depression. Patient is currently on clonazepam for anxiety and sees Dr. Frank at [facility]. States over the past week has been consuming a approx. 6 shots of 99 proof alcohol along with a few 40 ounce beers daily. Last drink was approximately one hour ago consisting of smirnoff screwdriver 3. States he cannot do this anymore. He wants help for his alcohol abuse. In addition over the past 6 months or so he has had random thoughts of suicide and that he would be okay with it. He has no plan in place. He has not attempted. He does not want to hurt himself. Denies any ingestion/ overdose of medications. He has attempted suicide in the past. He jumped off a third story building with no injuries. He was not admitted for inpatient treatment at that time. He has been treated multiple times inpatient for alcohol abuse. Last time was 2007. Currently complains of some epigastric discomfort with intermittent episodes of nausea with emesis with mild amounts of blood present. He has no history of esophageal varices or portal hypertension. No history of cirrhosis of liver. He has a history of gastric ulcers in the past with similar symptoms. There's been no dark tarry stools and or zeynep red blood from his rectum. Currently denies any fever, shortness of breath, chest pain, diarrhea, and/or pain with urination, Back Pain Score (Numeric/FACES): 9 - Related Data Allergies Allergy/AdvReac Type Severity Reaction Status Date / Time grass pollen Allergy Swelling Verified 10/28/17 12:35 Home Meds: Home Meds ClonazePAM [KlonoPIN] 0.5 mg PO BID 07/05/17 [History] Past Medical History - Past Health History Medical/Surgical History: Denies Medical/Surgical History HEENT History: Reports: Impaired Vision Other HEENT History: wears eyeglasses Cardiovascular History: Reports: Hypertension Other Cardiovascular History: states is recovering alcoholic and has HTN from the alcohol. Respiratory History: Reports: Bronchitis, Recurrent, Pneumonia, Recurrent Gastrointestinal History: Reports: GERD Other Gastrointestinal History: "history of a stomach ulcer" Genitourinary History: Reports: Other (See Below) Other Genitourinary History: states has to drink cranberry juice every day. Musculoskeletal History: Reports: Back Pain, Chronic, Fracture Neurological History: Reports: Concussion, Head Trauma, Migraines, Seizure Psychiatric History: Reports: Addiction, Anxiety, Depression, Emotional Problems , Hallucinations Hematologic History: Reports: Iron Deficiency Other Hematologic History: states "I take iron pills daily." - Infectious Disease History Infectious Disease History: Reports: Chicken Pox Social & Family History - Family History Family Medical History: Noncontributory - Tobacco Use Smoking Status *Q: Current Every Day Smoker Years of Tobacco use: 18 Packs/Tins Daily: 1 - Caffeine Use Caffeine Use: Reports: Coffee, Energy Drinks - Alcohol Use Days Per Week of Alcohol Use: 7 Number of Drinks Per Day: 20 Total Drinks Per Week: 140 - Recreational Drug Use Recreational Drug Use: No - Living Situation & Occupation Living situation: Reports: with Significant Other Occupation: Employed ED ROS GENERAL - Review of Systems Review Of Systems: ROS reveals no pertinent complaints other than HPI. ED EXAM, BEHAVIORAL HEALTH - Physical Exam Exam: See Below Exam Limited By: No Limitations General Appearance: Alert, WD/WN, No Apparent Distress Eye Exam: Right Eye: Papilledema (horizontal present ), Bilateral Eye: EOMI, Nystagmus, PERRL Ears: Hearing Grossly Normal Nose: Normal Inspection Throat/Mouth: Normal Inspection, Normal Oropharynx, Normal Voice, No Airway Compromise Neck: Normal Inspection, Supple, Non-Tender, Full Range of Motion Respiratory/Chest: No Respiratory Distress, Lungs Clear, Normal Breath Sounds, No Accessory Muscle Use, Chest Non-Tender Cardiovascular: Normal Peripheral Pulses, No Murmur, Tachycardia GI/Abdominal: Normal Bowel Sounds, Soft, No Organomegaly, Tender (epigastric: mild) Rectal (Males) Exam: Deferred Extremities: Normal Inspection Neurological: Alert, Normal Mood/Affect, CN II-XII Intact, Normal Cognition, Normal Gait, No Motor/Sensory Deficits, Oriented x 3 Psychiatric: Alert, Normal Affect, Normal Cognition, Normal Mood, Oriented. No : Depressed Mood, Flat Affect, Incoherent, Restless, Tearful, Agitated, Disoriented, Inattentive, Non-Communicative, Poor Eye Contact, Uncooperative, Withdrawn, Flight of Ideas, Homicidal Thoughts, Phobic, Yazdanism Delusions, Suicidal Plan, Suicidal Thoughts, Tangential Thoughts, Auditory Hallucinations, Visual Hallucinations, Grandiose Thoughts, Pressured Speech, Paranoid Thoughts, Threatening Behavior Skin Exam: Warm, Dry, Intact, Normal color COURSE, BEHAVIORAL HEALTH COMP - Course Vital Signs: Last Vital Signs Temp 98.9 F 10/28/17 12:15 Pulse 108 H 10/28/17 12:15 Resp 16 10/28/17 12:15 BP 136/92 H 10/28/17 12:15 Pulse Ox 98 10/28/17 12:15 Orders, Labs, Meds: Active Orders 24 hr Category Date Time Status Oxygen Therapy [RC] PRN Care 10/28/17 13:43 Active Laboratory Tests 10/28/17 10/28/17 10/28/17 Range/Units 12:48 12:48 12:48 WBC 5.67 (4.23-9.07) K/mm3 RBC 4.93 (4.63-6.08) M/mm3 Hgb 14.9 (13.7-17.5) gm/L Hct 43.0 (40.1-51.0) % MCV 87.2 (79.0-92.2) fl MCH 30.2 (25.7-32.2) pg MCHC 34.7 (32.2-35.5) g/dl RDW Std Deviation 43.2 (35.1-43.9) fL Plt Count 178 (163-337) K/mm3 MPV 9.2 L (9.4-12.3) fl Neut % (Auto) 40.3 (34.0-67.9) % Lymph % (Auto) 49.0 (21.8-53.1) % Harvey % (Auto) 8.5 (5.3-12.2) % Eos % (Auto) 1.8 (0.8-7.0) Baso % (Auto) 0.2 (0.1-1.2) % Neut # (Auto) 2.29 (1.78-5.38) K/mm3 Lymph # (Auto) 2.78 (1.32-3.57) K/mm3 Harvey # (Auto) 0.48 (0.30-0.82) K/mm3 Eos # (Auto) 0.10 (0.04-0.54) K/mm3 Baso # (Auto) 0.01 (0.01-0.08) K/mm3 Sodium 143 (136-145) mEq/L Potassium 3.5 (3.5-5.1) mEq/L Chloride 104 (98-107) mEq/L Carbon Dioxide 26 (21-32) mEq/L Anion Gap 16.5 H (5-15) BUN 11 (7-18) mg/dL Creatinine 1.1 (0.7-1.3) mg/dL Est Cr Clr Drug Dosing 97.98 mL/min Estimated GFR (MDRD) > 60 (>60) mL/min BUN/Creatinine Ratio 10.0 L (14-18) Glucose 101 (74-106) mg/dL Calcium 8.6 (8.5-10.1) mg/dL Magnesium 1.7 L (1.8-2.4) mg/dl Total Bilirubin 0.7 (0.2-1.0) mg/dL AST 23 (15-37) U/L ALT 43 (16-63) U/L Alkaline Phosphatase 104 (46-116) U/L Total Protein 6.7 (6.4-8.2) g/dl Albumin 3.8 (3.4-5.0) g/dl Globulin 2.9 gm/dL Albumin/Globulin Ratio 1.3 (1-2) TSH 3rd Generation 0.932 (0.358-3.74) uIU/mL Salicylates 1.4 L (2.8-20) mg/dL Urine Opiates Screen (NEGATIVE) Ur Buprenorphine Scrn (NEGATIVE) Ur Oxycodone Screen (NEGATIVE) Urine Methadone Screen (NEGATIVE) Ur Propoxyphene Screen (NEGATIVE) Acetaminophen 0 L (10-30) ug/mL Ur Barbiturates Screen (NEGATIVE) Ur Tricyclics Screen (NEGATIVE) Ur Phencyclidine Scrn (NEGATIVE) Ur Amphetamine Screen (NEGATIVE) U Methamphetamines Scrn (NEGATIVE) U Benzodiazepines Scrn (NEGATIVE) U Cocaine Metab Screen (NEGATIVE) U Marijuana (THC) Screen (NEGATIVE) Ethyl Alcohol 0.20 (0.00) gm% 10/28/17 Range/Units 13:10 WBC (4.23-9.07) K/mm3 RBC (4.63-6.08) M/mm3 Hgb (13.7-17.5) gm/L Hct (40.1-51.0) % MCV (79.0-92.2) fl MCH (25.7-32.2) pg MCHC (32.2-35.5) g/dl RDW Std Deviation (35.1-43.9) fL Plt Count (163-337) K/mm3 MPV (9.4-12.3) fl Neut % (Auto) (34.0-67.9) % Lymph % (Auto) (21.8-53.1) % Harvey % (Auto) (5.3-12.2) % Eos % (Auto) (0.8-7.0) Baso % (Auto) (0.1-1.2) % Neut # (Auto) (1.78-5.38) K/mm3 Lymph # (Auto) (1.32-3.57) K/mm3 Harvey # (Auto) (0.30-0.82) K/mm3 Eos # (Auto) (0.04-0.54) K/mm3 Baso # (Auto) (0.01-0.08) K/mm3 Sodium (136-145) mEq/L Potassium (3.5-5.1) mEq/L Chloride (98-107) mEq/L Carbon Dioxide (21-32) mEq/L Anion Gap (5-15) BUN (7-18) mg/dL Creatinine (0.7-1.3) mg/dL Est Cr Clr Drug Dosing mL/min Estimated GFR (MDRD) (>60) mL/min BUN/Creatinine Ratio (14-18) Glucose (74-106) mg/dL Calcium (8.5-10.1) mg/dL Magnesium (1.8-2.4) mg/dl Total Bilirubin (0.2-1.0) mg/dL AST (15-37) U/L ALT (16-63) U/L Alkaline Phosphatase (46-116) U/L Total Protein (6.4-8.2) g/dl Albumin (3.4-5.0) g/dl Globulin gm/dL Albumin/Globulin Ratio (1-2) TSH 3rd Generation (0.358-3.74) uIU/mL Salicylates (2.8-20) mg/dL Urine Opiates Screen Negative (NEGATIVE) Ur Buprenorphine Scrn Negative (NEGATIVE) Ur Oxycodone Screen Negative (NEGATIVE) Urine Methadone Screen Negative (NEGATIVE) Ur Propoxyphene Screen Negative (NEGATIVE) Acetaminophen (10-30) ug/mL Ur Barbiturates Screen Negative (NEGATIVE) Ur Tricyclics Screen Negative (NEGATIVE) Ur Phencyclidine Scrn Negative (NEGATIVE) Ur Amphetamine Screen Negative (NEGATIVE) U Methamphetamines Scrn Negative (NEGATIVE) U Benzodiazepines Scrn Negative (NEGATIVE) U Cocaine Metab Screen Negative (NEGATIVE) U Marijuana (THC) Screen Negative (NEGATIVE) Ethyl Alcohol (0.00) gm% Medications Discontinued Medications Generic Name Dose Route Start Last Admin Trade Name Freq PRN Reason Stop Dose Admin Al Hydroxide/Mg Hydroxide 30 0 ml 10/28/17 12:44 10/28/17 12:59 ml/ Lidocaine HCl 15 ml PO 10/28/17 12:45 45 ml ONETIME ONE Administration Folic Acid 1 mg 10/28/17 12:21 10/28/17 12:50 Folic Acid PO 10/28/17 12:22 1 mg ONETIME ONE Administration Sodium Chloride 1,000 mls @ 999 mls/hr 10/28/17 12:30 10/28/17 12:51 Normal Saline IV 999 mls/hr .BOLUS ELIZABETH Administration Lorazepam 1 mg 10/28/17 12:21 10/28/17 12:53 Ativan IVPUSH 10/28/17 12:22 1 mg ONETIME ONE Administration Protocol Magnesium Oxide 400 mg 10/28/17 13:43 10/28/17 13:50 Magnesium Oxide PO 10/28/17 13:44 400 mg ONETIME ONE Administration Pantoprazole Sodium 80 mg 10/28/17 12:44 10/28/17 12:57 Protonix Iv IVPUSH 10/28/17 12:45 80 mg .BOLUS ONE Administration Sodium Chloride 10 ml 10/28/17 12:21 10/28/17 12:51 Saline Flush FLUSH 10 ml ASDIRECTED PRN Administration Keep Vein Open Thiamine HCl 100 mg 10/28/17 12:21 10/28/17 12:50 Vitamin B-1 PO 10/28/17 12:22 100 mg ONETIME ONE Administration Re-Assessment/Re-Exam: Patient is a chronic alcoholic who has been drinking quite heavily for the past week. He has thoughts of suicide with no plan in place. He has not attempted. He is wishing to be admitted for inpatient detox and psych treatment. IV established with normal saline 999 mls per hour, thiamine 100 mg by mouth, Ativan protocol, folic acid 1 mg by mouth. With recent history of intermittent episodes of emesis with blood present. Ordered GI cocktail by mouth and also Protonix 80 mg IVP. Denies any black tarry stools or bright red blood from his rectum. Defers stool hemoccult testing. EKG sinus rhythm with no acute ST changes noted. Rate of 79. Initial labs and studies include CBC, chem 14, urine drug tox, magnesium, TSH, serum EtOH, acetaminophen, and salicylate. EKG will be obtained as well. Labs reviewed: CBC essentially normal. Chemistry panel was essentially normal as well. AG is mildly elevated 16.5. Creatinine 1.1. Magnesium mildly low 1.7. TSH 0.932. Urine drug tox negative. Salicylates 1.4. Acetaminophen 0. Serum EtOH 0.20. Discussed findings with the patient. He is resting comfortably. I asked the patient if he again wants to come in for inpatient detox and psychiatric evaluation. Patient states no he will follow up on an outpatient basis at [facility]. Patient is not currently suicidal. No plan in place to hurt himself. He is alert and oriented x 3. Patient has a ride home and someone to stay with him. I have instructed the patient to return back to the ED if he should have any new or worsening symptoms as discussed. The patient remained hemodynamically stable while under my care in the E.D. I discussed the concerning symptoms for which to return to the E.D. with the patient. The patient verbalized understanding. All questions were answered. Departure - Departure Time of Disposition: 14:10 Disposition: Home, Self-Care 01 Condition: Good Clinical Impression: Alcohol abuse, Alcohol dependence, Suicidal thoughts, Anxiety, Hypomagnesemia Alcohol intoxication Qualifiers: Complication of substance-induced condition: uncomplicated Qualified Code(s): F10.920 - Alcohol use, unspecified with intoxication, uncomplicated Depression Qualifiers: Depression Type: unspecified Qualified Code(s): F32.9 - Major depressive disorder, single episode, unspecified - Discharge Information Instructions: Generalized Anxiety Disorder, Adult, What You Need to Know About Alcohol Abuse and Dependence, Adult, Living With Depression, Suicidal Feelings: How to Help Yourself, Alcohol Withdrawal, [id number] Referrals: [facility] [Outside] Dickson Givens MD [Physician] - Additional Instructions: As discussed you refused inpatient treatment for alcohol detox. In addition refused inpatient evaluation for depression and anxiety with intermittent suicidal thoughts with no plan in place. I believe admission would be your best treatment course. Since refused I suggest following up with a provider over at [facility] for further alcohol dependence and also psych evaluation. No driving today since intoxicated. Please return to the ED if you develop a plan to hurt yourself, worsening depression/anxiety, hallucinations, seizures, or any additional new or worsening symptoms. - My Orders Last 24 Hours: My Active Orders 10/28/17 13:43 Oxygen Therapy [RC] PRN - Assessment/Plan Last 24 Hours: My Active Orders 10/28/17 13:43 Oxygen Therapy [RC] PRN
[2017-10-28 13:40] LABS: ACETAMINOPHEN 0 ug/mL (10-30)
[2017-10-28] MEDS ORDERED: Magnesium Oxide 400 MG Tab PO ONE (13:43)
== END 2017-10-28 14:27 | disposition home or self-care (01) ==
LOC: JD.ED 12:13
DX: F10.20 Alcohol dependence, uncomplicated (principal); F41.8 Other specified anxiety disorders; E83.42 Hypomagnesemia; R45.851 Suicidal ideations; I10 Essential (primary) hypertension; F17.210 Nicotine dependence, cigarettes, uncomplicated; Z79.899 Other long term (current) drug therapy
CPT/HCPCS: 36415; 80053; 80306; 83735; 84443; 85025; 93005; 96361; 96374; 96375; 99285; A9270; C9113; G0480; J2060; J7040; J7050; 99284

== ENCOUNTER 2018-06-25 23:35 | Emergency (ER) | payer BC, OTHER ==
[2018-06-26] VITALS: BP 124/90
[2018-06-26] MEDS ORDERED: Sodium Chloride 0.9% 10 ML Syringe FLUSH PRN (00:05)
[2018-06-26] MEDS ORDERED: Sodium Chloride 0.9% 1,000 ML IV SCH (00:15)
[2018-06-26 00:52] LABS: ACETAMINOPHEN 0 ug/mL (10-30)
--- NOTE | 2018-06-26 01:49 | EDM.PDOCBH ---
ED HPI GENERAL MEDICAL PROBLEM - General Chief Complaint: Behavioral/Psych Stated Complaint: suicidal thoughts Time Seen by Provider: 06/25/18 23:42 Source of Information: Reports: Patient History Limitations: Reports: Intoxication - History of Present Illness INITIAL COMMENTS - FREE TEXT/NARRATIVE: The patient presents intoxicated. He says he wants to fall asleep and not wake up. He has been on klonopin and it makes him angry. He has been sober for over a year and started drinking again but not as much until tonight. He got up set because there is lots going on in his life. He denies taking any illegal drugs. He has no fever, chills, cough, congestion, runny nose, chest pain, shortness of breath, abdominal pain, nausea or vomiting. He admits to drinking 99proof liquor called [employer] today. Onset: Gradual Duration: Hour(s): Improves with: Reports: None Worsens with: Reports: None Associated Symptoms: Reports: No Other Symptoms - Related Data Allergies Allergy/AdvReac Type Severity Reaction Status Date / Time grass pollen Allergy Swelling Verified 06/25/18 23:55 Home Meds: Home Meds ClonazePAM [KlonoPIN] 0.5 mg PO QID 06/25/18 [History] Past Medical History - Past Health History Medical/Surgical History: Denies Medical/Surgical History HEENT History: Reports: Impaired Vision Other HEENT History: wears eyeglasses Cardiovascular History: Reports: Hypertension Other Cardiovascular History: states is recovering alcoholic and has HTN from the alcohol. Respiratory History: Reports: Bronchitis, Recurrent, Pneumonia, Recurrent Gastrointestinal History: Reports: GERD, Other (See Below) Other Gastrointestinal History: "history of a stomach ulcer" Genitourinary History: Reports: Other (See Below) Other Genitourinary History: states has to drink cranberry juice every day. Musculoskeletal History: Reports: Back Pain, Chronic, Fracture Neurological History: Reports: Concussion, Head Trauma, Migraines Psychiatric History: Reports: Addiction, Anxiety, Depression, Emotional Problems , Hallucinations Hematologic History: Reports: Iron Deficiency Other Hematologic History: states "I take iron pills daily." - Infectious Disease History Infectious Disease History: Reports: Chicken Pox Social & Family History - Family History Family Medical History: Noncontributory Cardiac: Reports: CAD Endocrine/Metabolic: Reports: Other (See Below) Other Endocrine/Metabolic Family History: lupus, fibromyalgia - Tobacco Use Smoking Status *Q: Current Every Day Smoker Years of Tobacco use: 10 Packs/Tins Daily: 0.5 Used Tobacco, but Quit: No - Caffeine Use Caffeine Use: Reports: Coffee - Alcohol Use Days Per Week of Alcohol Use: 7 Number of Drinks Per Day: 12 Total Drinks Per Week: 84 - Recreational Drug Use Recreational Drug Use: No - Living Situation & Occupation Living situation: Reports: with Significant Other Occupation: Employed ED ROS GENERAL - Review of Systems Review Of Systems: See Below Constitutional: Reports: No Symptoms HEENT: Reports: No Symptoms Respiratory: Reports: No Symptoms Cardiovascular: Reports: No Symptoms Endocrine: Reports: No Symptoms GI/Abdominal: Reports: No Symptoms : Reports: No Symptoms Musculoskeletal: Reports: No Symptoms Skin: Reports: No Symptoms ED EXAM, BEHAVIORAL HEALTH - Physical Exam Exam: See Below Exam Limited By: Intoxication General Appearance: Alert, No Apparent Distress Ears: Normal External Exam Nose: Normal Inspection Head: Atraumatic, Normocephalic Neck: Normal Inspection Respiratory/Chest: No Respiratory Distress, Lungs Clear, Normal Breath Sounds Cardiovascular: Regular Rate, Rhythm, No Edema, No Murmur GI/Abdominal: Soft, Non-Tender, No Organomegaly, No Mass Extremities: Normal Inspection Neurological: Alert, No Motor/Sensory Deficits COURSE, BEHAVIORAL HEALTH COMP - Course Vital Signs: Last Vital Signs Temp 97.6 F 06/25/18 23:56 Pulse 96 06/25/18 23:56 Resp 18 06/25/18 23:56 BP 124/90 06/25/18 23:56 Pulse Ox 97 06/25/18 23:56 Orders, Labs, Meds: Active Orders 24 hr Category Date Time Status Cardiac Monitoring [RC] . DIRECTED Care 06/26/18 00:05 Active Peripheral IV Care [RC] . DIRECTED Care 06/26/18 00:05 Active DRUG SCREEN, URINE [URCHEM] Stat Lab 06/26/18 01:20 Received Sodium Chloride 0.9% [Normal Saline] 1,000 ml Med 06/26/18 00:15 Active IV .BOLUS Sodium Chloride 0.9% [Saline Flush] Med 06/26/18 00:05 Active 10 ml FLUSH ASDIRECTED PRN Peripheral IV Insertion Adult [OM.PC] Stat Oth 06/26/18 00:05 Ordered Medication Orders Sodium Chloride (Normal Saline) 1,000 mls @ 1,000 mls/hr IV .BOLUS ELIZABETH Last Admin: 06/26/18 00:16 Dose: 1,000 mls/hr Sodium Chloride (Saline Flush) 10 ml FLUSH ASDIRECTED PRN PRN Reason: Keep Vein Open Last Admin: 06/26/18 00:16 Dose: 10 ml Laboratory Tests 06/26/18 06/26/18 06/26/18 Range/Units 00:14 00:14 00:14 WBC 9.67 H (4.23-9.07) K/mm3 RBC 5.17 (4.63-6.08) M/mm3 Hgb 15.8 (13.7-17.5) gm/L Hct 45.1 (40.1-51.0) % MCV 87.2 (79.0-92.2) fl MCH 30.6 (25.7-32.2) pg MCHC 35.0 (32.2-35.5) g/dl RDW Std Deviation 43.0 (35.1-43.9) fL Plt Count 276 (163-337) K/mm3 MPV 9.4 (9.4-12.3) fl Neut % (Auto) 44.3 (34.0-67.9) % Lymph % (Auto) 46.0 (21.8-53.1) % [place]han % (Auto) 6.7 (5.3-12.2) % Eos % (Auto) 2.4 (0.8-7.0) Baso % (Auto) 0.2 (0.1-1.2) % Neut # (Auto) 4.28 (1.78-5.38) K/mm3 Lymph # (Auto) 4.45 H (1.32-3.57) K/mm3 [place] # (Auto) 0.65 (0.30-0.82) K/mm3 Eos # (Auto) 0.23 (0.04-0.54) K/mm3 Baso # (Auto) 0.02 (0.01-0.08) K/mm3 Sodium 150 H (136-145) mEq/L Potassium 3.6 (3.5-5.1) mEq/L Chloride 110 H (98-107) mEq/L Carbon Dioxide 28 (21-32) mEq/L Anion Gap 15.6 H (5-15) BUN 15 (7-18) mg/dL Creatinine 1.0 (0.7-1.3) mg/dL Est Cr Clr Drug Dosing 114.60 mL/min Estimated GFR (MDRD) > 60 (>60) mL/min BUN/Creatinine Ratio 15.0 (14-18) Glucose 100 (74-106) mg/dL Calcium 8.6 (8.5-10.1) mg/dL Total Bilirubin 0.2 (0.2-1.0) mg/dL AST 20 (15-37) U/L ALT 30 (16-63) U/L Alkaline Phosphatase 102 (46-116) U/L Total Protein 7.5 (6.4-8.2) g/dl Albumin 4.3 (3.4-5.0) g/dl Globulin 3.2 gm/dL Albumin/Globulin Ratio 1.3 (1-2) Salicylates 3.7 (2.8-20) mg/dL Acetaminophen 0 L (10-30) ug/mL Ethyl Alcohol 0.29 (0.00) gm% Medications Generic Name Dose Route Start Last Admin Trade Name Freq PRN Reason Stop Dose Admin Sodium Chloride 1,000 mls @ 1,000 mls/hr 06/26/18 00:15 06/26/18 00:16 Normal Saline IV 1,000 mls/hr .BOLUS ELIZABETH Administration Sodium Chloride 10 ml 06/26/18 00:05 06/26/18 00:16 Saline Flush FLUSH 10 ml ASDIRECTED PRN Administration Keep Vein Open Re-Assessment/Re-Exam: I ordered an IV NS 1L bolus, labs and urine drug screen. His WBC was slightly elevated. His sodium was elevated at 150. His anion gap was elevated at 15.6. His UDS was negative. His ETOH was 0.29. His acetaminophen and salicylates were normal. He feels better now. His girlfriend is here and feels comfortable taking him home. Departure - Departure Time of Disposition: 01:50 Disposition: Home, Self-Care 01 Condition: Good Clinical Impression: Alcohol intoxication Qualifiers: Complication of substance-induced condition: uncomplicated Qualified Code(s): F10.920 - Alcohol use, unspecified with intoxication, uncomplicated - Discharge Information *PRESCRIPTION DRUG MONITORING PROGRAM REVIEWED*: No *COPY OF PRESCRIPTION DRUG MONITORING REPORT IN PATIENT RENNY: No Referrals: PCP,None [Primary Care Provider] - Forms: ED Department Discharge, ED Return to Work/School Form Additional Instructions: Try to stop drinking. Please return if you are worse. - My Orders Last 24 Hours: My Active Orders 06/26/18 00:05 Cardiac Monitoring [RC] . DIRECTED Peripheral IV Care [RC] . DIRECTED Sodium Chloride 0.9% [Saline Flush] 10 ml FLUSH ASDIRECTED PRN Peripheral IV Insertion Adult [OM.PC] Stat 06/26/18 00:15 Sodium Chloride 0.9% [Normal Saline] 1,000 ml IV .BOLUS 06/26/18 01:20 DRUG SCREEN, URINE [URCHEM] Stat - Assessment/Plan Last 24 Hours: My Active Orders 06/26/18 00:05 Cardiac Monitoring [RC] . DIRECTED Peripheral IV Care [RC] . DIRECTED Sodium Chloride 0.9% [Saline Flush] 10 ml FLUSH ASDIRECTED PRN Peripheral IV Insertion Adult [OM.PC] Stat 06/26/18 00:15 Sodium Chloride 0.9% [Normal Saline] 1,000 ml IV .BOLUS 06/26/18 01:20 DRUG SCREEN, URINE [URCHEM] Stat
== END 2018-06-26 01:55 | disposition home or self-care (01) ==
LOC: JD.ED 23:35
DX: F10.120 Alcohol abuse with intoxication, uncomplicated (principal); Y90.8 Blood alcohol level of 240 mg/100 ml or more; F41.9 Anxiety disorder, unspecified; F32.9 Major depressive disorder, single episode, unspecified; F17.210 Nicotine dependence, cigarettes, uncomplicated; I10 Essential (primary) hypertension; Z91.09 Other allergy status, other than to drugs and biological substances
CPT/HCPCS: 36415; 80053; 80306; 85025; 96360; 99285; G0480; J7040; 99284

== ENCOUNTER 2018-11-28 13:19 | Emergency (ER) | payer BC ==
[2018-11-28 13:30] VITALS: BP 114/76
[2018-11-28] MEDS ORDERED: Ketorolac 60 MG/2 ML SDV IM ONE (14:42)
[2018-11-28] MEDS ORDERED: Acetaminophen/oxyCODONE 325-5 MG Tab PO ONE (14:42)
--- NOTE | 2018-11-28 14:44 | EDM.PDOC ---
ED HPI GENERAL MEDICAL PROBLEM - General Chief Complaint: ENT Problem Stated Complaint: EAR PAIN Time Seen by Provider: 11/28/18 13:35 Source of Information: Reports: Patient History Limitations: Reports: No Limitations - History of Present Illness INITIAL COMMENTS - FREE TEXT/NARRATIVE: Patient is a 33-year-old male presents ED complaining of pain to the right ear. States this started 3 days ago and has progressively gotten worse. This started at work. Denies any recent trauma or precipitating his. He has a previous history of similar pain with previous ear infection many years ago. There has been no sinus congestion, runny nose, sore throat, fever, drainage from his ear , or swelling to the affected area. He denies any tooth pain although he has poor dentition throughout his oral cavity. There is no noted swelling to his gum line. In addition he denies any difficulty swallowing. Patient is under chronic pain contract with his PCP for low back discomfort. Patient normally takes hydrocodone 10-325mg. patient states he ran out of this medication and has an appointment scheduled with his PCP at 1500 hrs. He presented to the ED today because of increasing pain to his right ear and couldn't stand it anymore. He has been using ibuprofen on intermittent basis. Patient also denies any neck stiffness. No recent trauma. He is questioning if laying on the large wooden ear gauge may have caused the discomfort. Right Ear Pain Score (Numeric/FACES): 9 - Related Data Allergies Allergy/AdvReac Type Severity Reaction Status Date / Time grass pollen Allergy Swelling Verified 11/28/18 13:25 Home Meds: Home Meds ClonazePAM [KlonoPIN] 0.5 mg PO ASDIRECTED 06/25/18 [History] Escitalopram. 1 tab PO DAILY 11/28/18 [History] Hydrocodone/Acetaminophen [Hydrocodon-Acetaminophn 10-325] 1 tab PO TID [History] Past Medical History - Past Health History Medical/Surgical History: Denies Medical/Surgical History HEENT History: Reports: Impaired Vision Other HEENT History: wears eyeglasses Cardiovascular History: Reports: Hypertension Other Cardiovascular History: states is recovering alcoholic and has HTN from the alcohol. Respiratory History: Reports: Bronchitis, Recurrent, Pneumonia, Recurrent Gastrointestinal History: Reports: GERD, Other (See Below) Other Gastrointestinal History: "history of a stomach ulcer" Genitourinary History: Reports: Other (See Below) Other Genitourinary History: states has to drink cranberry juice every day. Musculoskeletal History: Reports: Back Pain, Chronic, Fracture Neurological History: Reports: Concussion, Head Trauma, Migraines Psychiatric History: Reports: Addiction, Anxiety, Depression, Emotional Problems , Hallucinations Hematologic History: Reports: Iron Deficiency Other Hematologic History: states "I take iron pills daily." - Infectious Disease History Infectious Disease History: Reports: Chicken Pox Social & Family History - Family History Family Medical History: Noncontributory Cardiac: Reports: CAD Endocrine/Metabolic: Reports: Other (See Below) Other Endocrine/Metabolic Family History: lupus, fibromyalgia - Caffeine Use Caffeine Use: Reports: Coffee - Recreational Drug Use Recreational Drug Use: No - Living Situation & Occupation Living situation: Reports: with Significant Other Occupation: Employed ED ROS ENT - Review of Systems Review Of Systems: See Below ED EXAM, ENT - Physical Exam Exam: See Below Exam Limited By: No Limitations General Appearance: Alert, WD/WN, No Apparent Distress Eye Exam: Bilateral Eye: EOMI, Normal Inspection, PERRL, Vision Changes (None stated per patient) Ears: Normal External Exam, Normal Canal, Hearing Grossly Normal, Normal TMs Nose: Normal Inspection, Normal Mucousa, No Blood Mouth/Throat: Normal Inspection. No: Normal Teeth (Poor dentition. No gumline swelling.), Dry Mucous Membrane, Peritonsillar Mass, Pharyngeal Erythema, Throat Pain, Tonsillar Erythema, Tonsillar Exudates, Tonsillar Swelling, Trismus , Uvular Deviation Head: Atraumatic, Normocephalic Neck: Normal Inspection, Supple, Full Range of Motion, Other (Tenderness noted with palpation of the tonsillar lymph with no lymphadenopathy noted. No swelling , rash, decreased range of motion, or any belly noted.). No: Lymphadenopathy (L ), Lymphadenopathy (R) Respiratory/Chest: No Respiratory Distress, Lungs Clear, Normal Breath Sounds, No Accessory Muscle Use, Chest Non-Tender Cardiovascular: Normal Peripheral Pulses, Regular Rate, Rhythm, No Murmur Neurological: Alert, Oriented, CN II-XII Intact, Normal Cognition, No Motor/ Sensory Deficits Psychiatric: Normal Affect, Normal Mood Skin: Warm, Dry, Intact, Normal Color, No Rash Course - Vital Signs Last Recorded V/S: Last Vital Signs Temp 98.3 F 06/28/19 13:27 Pulse 78 11/28/18 13:27 Resp 16 11/28/18 13:27 BP 114/76 11/28/18 13:27 Pulse Ox 96 11/28/18 13:27 - Orders/Labs/Meds Meds: Medications Discontinued Medications Generic Name Dose Route Start Last Admin Trade Name Flip PRN Reason Stop Dose Admin Ketorolac Tromethamine 60 mg 11/28/18 14:42 11/28/18 15:09 Toradol IM 11/28/18 14:43 60 mg ONETIME ONE Administration Oxycodone/Acetaminophen 2 tab 11/28/18 14:42 11/28/18 15:09 Percocet 325-5 Mg PO 11/28/18 14:43 2 tab ONETIME ONE Administration - Re-Assessments/Exams Free Text/Narrative Re-Assessment/Exam: Unclear cause of current discomfort. Patient suspects the discomfort he is currently experiencing is related to sleeping on the large gauge to the right earlobe. On exam he has pinpoint tenderness along the tonsillar lymph node. Otherwise the exam was benign. He has appointment with PCP in the next 20 minutes. Patient states he cannot miss this appt since he is getting a new prescription for percocet. I have provided some pain therapy with perocet and toradol. Mother is present for ride. Return precautions discussed with patient. Departure - Departure Time of Disposition: 14:43 Disposition: Home, Self-Care 01 Condition: Good Clinical Impression: Neck pain on right side, Ear pain, right - Discharge Information Instructions: Pain Without a Known Cause, Earache, Adult Referrals: Sean Hernandez Jr, MD [Primary Care Provider] - Forms: ED Department Discharge Additional Instructions: No driving since receiving a sedative medication. Keep appointment as scheduled with PCP for later today. Return to ED the E.D if you develop any new or worsening symptoms. Further pain management see your PCP.
== END 2018-11-28 15:13 | disposition home or self-care (01) ==
LOC: JD.ED 13:19
DX: M54.2 Cervicalgia (principal); H92.01 Otalgia, right ear; I10 Essential (primary) hypertension; F41.9 Anxiety disorder, unspecified; F32.9 Major depressive disorder, single episode, unspecified; Z91.048 Other nonmedicinal substance allergy status; Z79.899 Other long term (current) drug therapy
CPT/HCPCS: 96372; 99282; A9270; J1885; 99283

== ENCOUNTER 2019-04-10 17:08 | Emergency (ER) | payer BC ==
[2019-04-10 17:24] VITALS: BP 137/88; PULSE 101
[2019-04-10] MEDS ORDERED: Ondansetron 4 MG/2 ML SDV IVPUSH ONE (17:47)
[2019-04-10] MEDS ORDERED: Sodium Chloride 0.9% 1,000 ML IV ONE (17:47)
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
[2019-04-10] MEDS ORDERED: Sodium Chloride 0.9% 10 ML Syringe FLUSH PRN (17:48)
[2019-04-10] MEDS ORDERED: LORazepam 2 MG/ML SDV IVPUSH ONE (18:28)
== END 2019-04-10 19:21 | disposition left against medical advice (07) ==
LOC: SUPCPDRO 17:08 → JD.ED 17:08
DX: F10.220 Alcohol dependence with intoxication, uncomplicated (principal); I10 Essential (primary) hypertension; F41.9 Anxiety disorder, unspecified; F32.9 Major depressive disorder, single episode, unspecified; F17.210 Nicotine dependence, cigarettes, uncomplicated; Z91.048 Other nonmedicinal substance allergy status; Z79.899 Other long term (current) drug therapy
CPT/HCPCS: 96361; 96374; 99283; J2405; J7040

== ENCOUNTER 2019-12-07 23:51 | Emergency (ER) | payer MEDICAID, OTHER ==
--- NOTE | 2019-12-08 00:09 | EDM.PDOCBH ---
ED HPI GENERAL MEDICAL PROBLEM - General Chief Complaint: Behavioral/Psych Stated Complaint: [facility] Time Seen by Provider: 12/07/19 23:55 Source of Information: Reports: Patient, EMS History Limitations: Reports: Intoxication - History of Present Illness INITIAL COMMENTS - FREE TEXT/NARRATIVE: Mr. Connell is a pleasant 34-year-old man with a past medical history significant for binge alcoholism and untreated anxiety and depression, who is now brought to the ED by EMS after the patient took a handful of pills, apparently in an attempt to commit suicide, around 23:25 this evening. EMS informed me that the patient took an unknown quantity of [place], clonazepam, diphenhydramine, and zolpidem, along with 9 shots of 100-proof alcohol, 2 drinks of vodka and some Ev erclear. EMS informed me that the patient told him that it was an attempt to commit suicide, and the patient told the triage nurse "I just did not want to wake up. If you knew my life, you would not want to wake up either." He told the triage nurse that he took a combination of [place], hydralazine, clonazepam, and escitalopram. The patient tells me, however, that he was not attempting to commit suicide, rather, that he told his girlfriend that he took some pills so that he could get some sleep, since he suffers from severe insomnia, and that she then "freaked out", and that the only way to avoid a major argument was to tell the paramedics that he was attempting to commit suicide. He acknowledges that he did tell the paramedics that he took the pills in an attempt to kill himself. The patient states that he has attempted suicide only once in his life, when 15 years old, by threatening to jump off of a building. He states that this occurred after his sister had killed herself. He was eventually talked down. He has been to alcohol rehab numerous times, but denies any other psychiatric admissions. Prior medical records, however, finds that the patient was seen in this ED on , and that he reported at that time that he had attempted to [place] out of [place] [address] He was not psychiatrically hospitalized for that event. Additionally, that same medical record indicates that the patient's sister was killed by a drunk commercial driver's license driver in 2002, that she did not kill herself. Here in the ED, the patient's initial BP is found to be slightly elevated at 1 35/91, with a tachycardia of 114 bpm. He is afebrile, saturating 98% on room air. Other than tonight's event, the patient reports that he has had nausea, vomiting, watery diarrhea, and cold sweats over the past 3 days. Otherwise, the patient denies recent fever, chills, sore throat, ear pain, nasal or sinus congestion, cough, dyspnea, chest pain, palpitations, constipation, abdominal pain, urinary symptoms, recent weight gain or weight loss, recent bloody bowel movements or black bowel movements, recent joint aches, headaches, or rashes. The patient's PCP is Shweta Estrella NP. - Related Data Allergies Allergy/AdvReac Type Severity Reaction Status Date / Time grass pollen Allergy Swelling Verified 12/07/19 23:58 Home Meds: Home Meds Cyproheptadine HCl 4 mg PO Q6H PRN 12/08/19 [History] Escitalopram [Lexapro] 20 mg PO DAILY 12/08/19 [History] Ibuprofen [Ibu] 600 mg PO TID 12/08/19 [History] Naltrexone HCl [Revia] 50 mg PO DAILY 12/08/19 [History] Venlafaxine [Effexor XR] 37.5 mg PO DAILY 12/08/19 [History] buPROPion [buPROPion XL] 150 mg PO BID 12/08/19 [History] clonazePAM [Clonazepam] 1 mg PO BID 12/08/19 [History] diphenhydrAMINE HCL [Benadryl] 25 mg PO ASDIRECTED PRN 12/08/19 [History] hydrOXYzine pamoate [Hydroxyzine Pamoate] 100 mg PO BEDTIME 12/08/19 [History] Past Medical History HEENT History: Reports: Impaired Vision (wears glasses) Cardiovascular History: Reports: Hypertension (untreated) Gastrointestinal History: Reports: GERD (untreated), PUD (EGD-confirmed) Musculoskeletal History: Reports: Back Pain, Chronic (due to 3 thoracic vertebral compression fxs and DDD), Fracture (3 thoracic vertebral compression, left thumb) Neurological History: Reports: Head Trauma, Seizure (alcohol-related only) Psychiatric History: Reports: Addiction (alcohol), Depression (untreated), PTSD Hematologic History: Reports: Iron Deficiency - Infectious Disease History Infectious Disease History: Reports: Chicken Pox - Past Surgical History HEENT Surgical History: Reports: Oral Surgery (wisdom teeth extraction) GI Surgical History: Reports: EGD (x 1) Musculoskeletal Surgical History: Reports: ORIF (left thumb) Social & Family History - Family History Family Medical History: Noncontributory Cardiac: Reports: CAD Endocrine/Metabolic: Reports: Other (See Below) Other Endocrine/Metabolic Family History: lupus, fibromyalgia - Tobacco Use Smoking Status *Q: Current Every Day Smoker Years of Tobacco use: 20 Packs/Tins Daily: 1 - Caffeine Use Caffeine Use: Reports: None - Alcohol Use Alcohol Use History: Yes Alcohol Use Frequency: Binges - Recreational Drug Use Recreational Drug Use: Yes Drug Use in Last 12 Months: No Recreational Drug Type: Reports: Marijuana/Hashish (last smoked in HS), Methamphetamine (last took in HS) - Living Situation & Occupation Living situation: Reports: (), with Significant Other (Girlfriend) Occupation: Employed (sweeper cleaner industrial) ED ROS GENERAL - Review of Systems Review Of Systems: Comprehensive ROS is negative, except as noted in HPI. ED EXAM, BEHAVIORAL HEALTH - Physical Exam Exam: See Below Exam Limited By: No Limitations (patient cooperative with exam) General Appearance: WD/WN, Other (Clinically intoxicated, with significantly slurred speech) Eye Exam: Bilateral Eye: EOMI, Normal Inspection Ears: Normal External Exam, Hearing Grossly Normal Nose: Normal Inspection Throat/Mouth: Normal Inspection, Normal Lips, Normal Voice, No Airway Compromise Head: Atraumatic, Normocephalic Neck: Normal Inspection, Full Range of Motion Respiratory/Chest: No Respiratory Distress, Lungs Clear, Normal Breath Sounds, No Accessory Muscle Use Cardiovascular: Normal Peripheral Pulses, Regular Rate, Rhythm, No Edema, No Gallop, No JVD, No Murmur, No Rub GI/Abdominal: Normal Bowel Sounds, Soft, Non-Tender, No Organomegaly, No Distention, No Abnormal Bruit, No Mass (Male) Exam: Deferred Rectal (Males) Exam: Deferred Back Exam: Normal Inspection, Full Range of Motion, NT Extremities: Normal Inspection, Normal Range of Motion, No Pedal Edema, Normal Capillary Refill Neurological: No Motor/Sensory Deficits, Other (Significantly slurred speech) Psychiatric: Normal Affect Skin Exam: Warm, Dry, Intact, Normal color, No rash, Tattoo(s) (numerous) EKG INTERPRETATION EKG Date: 12/08/19 Time: 00:05 Rhythm: NSR Rate (Beats/Min): 97 Camargo: Normal P-Wave: Enlarged (LAE) QRS: Normal ST-T: Normal QT: Normal Comparison: No Change (10/23/2018) COURSE, BEHAVIORAL HEALTH COMP - Course Vital Signs: Last Vital Signs Temp 37.4 C 12/08/19 11:45 Pulse 91 12/08/19 11:45 Resp 18 12/08/19 11:45 BP 114/72 12/08/19 11:45 Pulse Ox 98 12/08/19 11:45 Orders, Labs, Meds: Active Orders 24 hr Category Date Time Status EKG Documentation Completion [RC] STAT Care 12/08/19 00:00 Active Laboratory Tests 12/08/19 12/08/19 12/08/19 Range/Units 00:14 00:14 00:14 WBC 10.23 H (4.23-9.07) K/mm3 RBC 4.80 (4.63-6.08) M/mm3 Hgb 14.8 (13.7-17.5) gm/dl Hct 42.7 (40.1-51.0) % MCV 89.0 (79.0-92.2) fl MCH 30.8 (25.7-32.2) pg MCHC 34.7 (32.2-35.5) g/dl RDW Std Deviation 43.1 (35.1-43.9) fL Plt Count 245 (163-337) K/mm3 MPV 9.9 (9.4-12.3) fl Neutrophils % (Manual) 40 (40-60) % Band Neutrophils % 0 (0-10) % Lymphocytes % (Manual) 51 H (20-40) % Atypical Lymphs % 0 % Monocytes % (Manual) 6 (2-10) % Eosinophils % (Manual) 3 (0.8-7.0) % Basophils % (Manual) 0 L (0.2-1.2) Platelet Estimate Adequate RBC Morph Comment Normal Sodium 147 H (136-145) mEq/L Potassium 3.7 (3.5-5.1) mEq/L Chloride 108 H (98-107) mEq/L Carbon Dioxide 29 (21-32) mEq/L Anion Gap 13.7 (5-15) BUN 15 (7-18) mg/dL Creatinine 1.0 (0.7-1.3) mg/dL Est Cr Clr Drug Dosing 104.09 mL/min Estimated GFR (MDRD) > 60 (>60) mL/min BUN/Creatinine Ratio 15.0 (14-18) Glucose 97 (74-106) mg/dL Calcium 8.5 (8.5-10.1) mg/dL Total Bilirubin 0.3 (0.2-1.0) mg/dL AST 45 H (15-37) U/L ALT 74 H (16-63) U/L Alkaline Phosphatase 107 (46-116) U/L Total Protein 7.0 (6.4-8.2) g/dl Albumin 3.9 (3.4-5.0) g/dl Globulin 3.1 gm/dL Albumin/Globulin Ratio 1.3 (1-2) TSH 3rd Generation 3.504 (0.358-3.74) uIU/mL Salicylates 2.9 (2.8-20) mg/dL Urine Opiates Screen (XOULEF=934) Ur Buprenorphine Scrn (CUTOFF=10) Ur Oxycodone Screen (WIZ3TL=193) Urine Methadone Screen (RDB1JE=996) Ur Propoxyphene Screen (CBNKQJ=018) Acetaminophen 0 L (10-30) ug/mL Ur Barbiturates Screen (IGUKYQ=176) Ur Tricyclics Screen (LTQNQJ=302) Ur Phencyclidine Scrn (CUTOFF=25) Ur Amphetamine Screen (GJSNIU=246) U Methamphetamines Scrn (GRXBWP=028) U Benzodiazepines Scrn (KUGKET=649) U Cocaine Metab Screen (LKBMWG=827) U Marijuana (THC) Screen (CUTOFF=50) Ethyl Alcohol 0.23 (0.00) gm% COVID-19 (ELIZABETH) (NEGATIVE) 12/08/19 12/08/19 12/08/19 Range/Units 03:43 03:50 07:00 WBC (4.23-9.07) K/mm3 RBC (4.63-6.08) M/mm3 Hgb (13.7-17.5) gm/dl Hct (40.1-51.0) % MCV (79.0-92.2) fl MCH (25.7-32.2) pg MCHC (32.2-35.5) g/dl RDW Std Deviation (35.1-43.9) fL Plt Count (163-337) K/mm3 MPV (9.4-12.3) fl Neutrophils % (Manual) (40-60) % Band Neutrophils % (0-10) % Lymphocytes % (Manual) (20-40) % Atypical Lymphs % % Monocytes % (Manual) (2-10) % Eosinophils % (Manual) (0.8-7.0) % Basophils % (Manual) (0.2-1.2) Platelet Estimate RBC Morph Comment Sodium (136-145) mEq/L Potassium (3.5-5.1) mEq/L Chloride (98-107) mEq/L Carbon Dioxide (21-32) mEq/L Anion Gap (5-15) BUN (7-18) mg/dL Creatinine (0.7-1.3) mg/dL Est Cr Clr Drug Dosing mL/min Estimated GFR (MDRD) (>60) mL/min BUN/Creatinine Ratio (14-18) Glucose (74-106) mg/dL Calcium (8.5-10.1) mg/dL Total Bilirubin (0.2-1.0) mg/dL AST (15-37) U/L ALT (16-63) U/L Alkaline Phosphatase (46-116) U/L Total Protein (6.4-8.2) g/dl Albumin (3.4-5.0) g/dl Globulin gm/dL Albumin/Globulin Ratio (1-2) TSH 3rd Generation (0.358-3.74) uIU/mL Salicylates (2.8-20) mg/dL Urine Opiates Screen Negative (TXJSMT=117) Ur Buprenorphine Scrn Negative (CUTOFF=10) Ur Oxycodone Screen Negative (CMK1MQ=351) Urine Methadone Screen Negative (QCW5MX=482) Ur Propoxyphene Screen Negative (JVPPYE=950) Acetaminophen 0 L (10-30) ug/mL Ur Barbiturates Screen Negative (JTCZZC=252) Ur Tricyclics Screen Negative (QOFAGG=541) Ur Phencyclidine Scrn Negative (CUTOFF=25) Ur Amphetamine Screen Negative (NWQLHA=661) U Methamphetamines Scrn Negative (XSGENS=231) U Benzodiazepines Scrn Negative (DQLYPD=352) U Cocaine Metab Screen Negative (TSVRIF=627) U Marijuana (THC) Screen Negative (CUTOFF=50) Ethyl Alcohol (0.00) gm% COVID-19 (ELIZABETH) Negative (NEGATIVE) Medical Clearance: 12/08/19 00:09 Notified by Mirta CALHOUN that the patient told her that his brother is on his way over here, and that when is brother gets here, he is leaving. Based on the information that I have already, I will place a 24-hour hold. 12/08/19 00:47 As above, the patient apparently attempted suicide by taking a handful of a number of his prescribed medications, although it is not entirely clear what exactly he took. EMS informed us that he took [place], clonazepam, diphenh ydramine, and zolpidem, however, the patient denies that he took either [place] or zolpidem, stating instead that he took hydralazine. It also appears that he took a considerable amount of alcohol, and the patient is significantly slurring his speech and appears to be significantly intoxicated. I have ordered a standard psychiatric medical clearance panel, with a repeat acetaminophen level at 03:30. 12/08/19 03:19 The patient's CBC is remarkable for a WBC count slightly elevated at 10.23, but with 0% bandemia. The remainder of his CBC is unremarkable. His CMP is remarkable for sodium slightly elevated at 147 with a chloride elevated at 108. His AST/ALT are mildly elevated at 45/74, respectively, with the remainder of his CMP being unremarkable. His TSH is within normal limits at 3.504. His acetaminophen level is 0. His salicylate level is within normal limits at 2.9. His EtOH level is elevated at 0.23. The patient has not yet provided a urine sample for the urine drug screen. 12/08/19 06:35 The patient's repeat acetaminophen level remained 0. His urine drug screen is completely negative. 12/08/19 07:02 Case discussed with Rebecca at [facility] at 06:45. Case then discussed with Dr. Landa, Psychiatrist on-call at [facility], at 06:52. She would like us to perform a rapid screening test for COVID-19 and call them back with that result, and she would also like us to fax a copy of my 24-hour hold paperwork for them to review. 12/08/19 07:41 The rapid screening test for COVID-19 has returned negative. Departure - Departure Time of Disposition: 07:53 Disposition: DC/Tfer to Psych Hosp/Unit 65 Condition: Good Clinical Impression: Suicide attempt by drug overdose, Alcohol dependence, binge pattern Alcohol intoxication Qualifiers: Complication of substance-induced condition: uncomplicated Qualified Code(s): F10.920 - Alcohol use, unspecified with intoxication, uncomplicated - Discharge Information *PRESCRIPTION DRUG MONITORING PROGRAM REVIEWED*: Not Applicable *COPY OF PRESCRIPTION DRUG MONITORING REPORT IN PATIENT RENNY: Not Applicable Referrals: Shweta Estrella NP [Ordering Only Provider] - Forms: ED Department Discharge Sepsis Event Note (ED) - Evaluation Sepsis Screening Result: No Definite Risk - Focused Exam Vital Signs: Vital Signs Temp Pulse Resp BP Pulse Ox 12/08/19 11:45 37.4 C 91 18 114/72 98 - My Orders Last 24 Hours: My Active Orders 12/08/19 00:00 EKG Documentation Completion [RC] STAT - Assessment/Plan Last 24 Hours: My Active Orders 12/08/19 00:00 EKG Documentation Completion [RC] STAT
[2019-12-08 01:04] LABS: ACETAMINOPHEN 0 ug/mL (10-30)
[2019-12-08 11:52] VITALS: BP 114/72; PULSE 91
== END 2019-12-08 14:35 ==
LOC: JD.ED 23:51
DX: T42.4X2A Poisoning by benzodiazepines, intentional self-harm, initial encounter (principal); T45.0X2A Poisoning by antiallergic and antiemetic drugs, intentional self-harm, initial encounter; T42.6X2A Poisoning by other antiepileptic and sedative-hypnotic drugs, intentional self-harm, initial encounter; I10 Essential (primary) hypertension; K21.9 Gastro-esophageal reflux disease without esophagitis; F10.220 Alcohol dependence with intoxication, uncomplicated; R56.9 Unspecified convulsions; F32.9 Major depressive disorder, single episode, unspecified; F17.210 Nicotine dependence, cigarettes, uncomplicated; Z91.09 Other allergy status, other than to drugs and biological substances; Z79.899 Other long term (current) drug therapy; Z20.828 Contact with and (suspected) exposure to other viral communicable diseases; Y90.8 Blood alcohol level of 240 mg/100 ml or more
CPT/HCPCS: 36415; 80053; 80306; 80307; 84443; 85007; 85027; 93005; 93010; 99285; 99285-25; U0002

== ENCOUNTER 2020-04-24 18:18 | Emergency (ER) | payer MEDICAID ==
[2020-04-24 18:25] VITALS: BP 134/82; PULSE 94
--- NOTE | 2020-04-24 18:49 | EDM.PDOC ---
ED HPI GENERAL MEDICAL PROBLEM - General Chief Complaint: ENT Problem Stated Complaint: TOOTH PAIN Time Seen by Provider: 04/24/20 18:37 Source of Information: Reports: Patient History Limitations: Reports: No Limitations - History of Present Illness INITIAL COMMENTS - FREE TEXT/NARRATIVE: The patient presents with tooth pain. This started about a week ago. The pain is in the left upper gum line. He has some bad teeth. He has been trying to get into a dentist but he work does not have dental insurance. It has been tough. He has no fever or chills. Onset: Gradual Duration: Week(s): Location: Reports: Other (Left upper gum line) Quality: Reports: Sharp Severity: Severe Improves with: Reports: None Worsens with: Reports: None Associated Symptoms: Reports: No Other Symptoms Left Upper Oral/Mouth Pain Score (Numeric/FACES): 8 - Related Data Allergies Allergy/AdvReac Type Severity Reaction Status Date / Time grass pollen Allergy Swelling Verified 04/24/20 18:25 Home Meds: Home Meds oxyCODONE HCl/Acetaminophen [Percocet 10-325 mg Tablet] 1 tab PO BID 04/24/20 [History] Past Medical History - Past Health History Medical/Surgical History: Denies Medical/Surgical History HEENT History: Reports: Impaired Vision Other HEENT History: wears eyeglasses Cardiovascular History: Reports: Hypertension Other Cardiovascular History: states is recovering alcoholic and has HTN from the alcohol. Respiratory History: Reports: Bronchitis, Recurrent, Pneumonia, Recurrent Gastrointestinal History: Reports: GERD, PUD Other Gastrointestinal History: "history of a stomach ulcer" Genitourinary History: Reports: Other (See Below) Other Genitourinary History: states has to drink cranberry juice every day. Musculoskeletal History: Reports: Back Pain, Chronic, Fracture Neurological History: Reports: Head Trauma, Seizure Other Neuro History: alcohol withdrawal seizure Psychiatric History: Reports: Addiction, Depression, PTSD Hematologic History: Reports: Iron Deficiency Other Hematologic History: states "I take iron pills daily." - Infectious Disease History Infectious Disease History: Reports: Chicken Pox - Past Surgical History HEENT Surgical History: Reports: Oral Surgery GI Surgical History: Reports: EGD Musculoskeletal Surgical History: Reports: ORIF Social & Family History - Family History Family Medical History: No Pertinent Family History Cardiac: Reports: CAD Endocrine/Metabolic: Reports: Other (See Below) Other Endocrine/Metabolic Family History: lupus, fibromyalgia - Tobacco Use Tobacco Use Status *Q: Current Every Day Tobacco User Years of Tobacco use: 20 Packs/Tins Daily: 1 - Caffeine Use Caffeine Use: Reports: Coffee - Recreational Drug Use Recreational Drug Use: No - Living Situation & Occupation Living situation: Reports: (), with Significant Other (Girlfriend) Occupation: Employed (janitor cleaner) ED ROS ENT - Review of Systems Review Of Systems: See Below Constitutional: Reports: No Symptoms HEENT: Reports: Dental Pain Respiratory: Reports: No Symptoms Cardiovascular: Reports: No Symptoms Endocrine: Reports: No Symptoms GI/Abdominal: Reports: No Symptoms : Reports: No Symptoms Musculoskeletal: Reports: No Symptoms ED EXAM, ENT - Physical Exam Exam: See Below Exam Limited By: No Limitations General Appearance: Alert, No Apparent Distress Ears: Normal External Exam Nose: Normal Inspection Mouth/Throat: Other (Cavities to multiple teeth on the left upper jaw line with erythema and edema and a broken premolar.) Course - Vital Signs Last Recorded V/S: Last Vital Signs Temp 97.9 F 04/24/20 18:24 Pulse 94 04/24/20 18:24 Resp 20 04/24/20 18:24 BP 134/82 04/24/20 18:24 Pulse Ox 100 04/24/20 18:24 Departure - Departure Time of Disposition: 18:50 Disposition: Home, Self-Care 01 Condition: Good Clinical Impression: Dental caries, Dental abscess, Pain, dental - Discharge Information *PRESCRIPTION DRUG MONITORING PROGRAM REVIEWED*: Not Applicable *COPY OF PRESCRIPTION DRUG MONITORING REPORT IN PATIENT RENNY: Not Applicable Referrals: Shweta Estrella NP [Primary Care Provider] - Additional Instructions: Take the medication as prescribed. Follow up with a dentist within a week. Please return if you are worse. Sepsis Event Note (ED) - Evaluation Sepsis Screening Result: No Definite Risk - Focused Exam Vital Signs: Vital Signs Temp Pulse Resp BP Pulse Ox 04/24/20 18:24 97.9 F 94 20 134/82 100
== END 2020-04-24 19:00 | disposition home or self-care (01) ==
LOC: JD.ED 18:18
DX: K04.7 Periapical abscess without sinus (principal); K02.9 Dental caries, unspecified; I10 Essential (primary) hypertension; D50.9 Iron deficiency anemia, unspecified; F17.210 Nicotine dependence, cigarettes, uncomplicated; Z91.048 Other nonmedicinal substance allergy status; Z79.899 Other long term (current) drug therapy
CPT/HCPCS: 99282

== ENCOUNTER 2020-05-27 20:56 | Emergency (ER) | payer MEDICAID ==
[2020-05-27 21:09] VITALS: BP 133/94; PULSE 93
[2020-05-27] MEDS ORDERED: predniSONE 20 MG Tab PO STA (21:37)
--- NOTE | 2020-05-27 21:37 | EDM.PDOC ---
ED HPI GENERAL MEDICAL PROBLEM - General Chief Complaint: Lower Extremity Injury/Pain Stated Complaint: numbness in left leg getting worse Time Seen by Provider: 05/27/20 21:07 Source of Information: Reports: Patient History Limitations: Reports: No Limitations - History of Present Illness INITIAL COMMENTS - FREE TEXT/NARRATIVE: Mr. Connell is a very pleasant 35-year-old gentleman who now presents the ED with tingling and numbness to his posterior, lateral, and anterior left thigh for the past few weeks. He is able to demarcate exactly where the tingling and numbness ends and normal sensation begins on his medial thigh. He also reports 2 days of crampy anterior left thigh pain, however, the patient ordinarily takes [place] or Percocet for chronic low back pain, but has not for the past few days. No prior similar symptoms. The patient has chronic lower back pain, but denies recent back or buttock injury. The patient states that he discussed his thigh symptoms with his PCP when he last saw her on 05/19/2020, but then no tests were ordered. He was instructed to return to her if his symptoms persisted. Here in the ED, the patient is found to be hemodynamically stable, afebrile, saturating 99% on room air. Other than his chronic lower back pain and more recent left thigh issue, the patient denies having a recent fever, chills, sore throat, ear pain, nasal or sinus congestion, cough, dyspnea, chest pain, palpitations, nausea, vomiting, constipation, diarrhea, abdominal pain, urinary symptoms, recent weight gain or weight loss, recent bloody bowel movements or black bowel movements, recent joint aches, headaches, or rashes. The patient's PCP is Shweta Estrella NP. He has not received an influenza vaccine this season, but agreed to receive one here in the ED. Left Thigh Pain Score (Numeric/FACES): 7 - Related Data Allergies Allergy/AdvReac Type Severity Reaction Status Date / Time grass pollen Allergy Swelling Verified 04/24/20 18:25 Home Meds: Home Meds oxyCODONE HCl/Acetaminophen [Percocet 10-325 mg Tablet] 1 tab PO BID 04/24/20 [History] predniSONE [Prednisone] 1 tab PO QPM #6 tablet 05/27/20 [Rx] Past Medical History HEENT History: Reports: Impaired Vision (wears glasses) Cardiovascular History: Reports: Hypertension (untreated) Gastrointestinal History: Reports: GERD (untreated), PUD Musculoskeletal History: Reports: Back Pain, Chronic (DDD), Fracture (vertebral compression + left thumb) Neurological History: Reports: Head Trauma, Seizure (alcohol-related) Psychiatric History: Reports: Addiction (alcohol), Depression (untreated), PTSD (untreated) Hematologic History: Reports: Iron Deficiency - Infectious Disease History Infectious Disease History: Reports: Chicken Pox - Past Surgical History HEENT Surgical History: Reports: Oral Surgery (dental extractions) GI Surgical History: Reports: EGD (x 1) Musculoskeletal Surgical History: Reports: ORIF (left thumb) Social & Family History - Tobacco Use Tobacco Use Status *Q: Current Every Day Tobacco User Years of Tobacco use: 21 Packs/Tins Daily: 1 - Caffeine Use Caffeine Use: Reports: Coffee - Alcohol Use Alcohol Use History: Yes Date/Time of Last Drink Comment: Last drink 11/24/2019 Alcohol Use Frequency: Binges - Recreational Drug Use Recreational Drug Use: Yes Drug Use in Last 12 Months: No Recreational Drug Type: Reports: Marijuana/Hashish (last smoked in HS), Methamphetamine (last took in HS) - Living Situation & Occupation Living situation: Reports: (), with Significant Other (Girlfriend) Occupation: Unemployed ED ROS GENERAL - Review of Systems Review Of Systems: Comprehensive ROS is negative, except as noted in HPI. ED EXAM, GENERAL - Physical Exam Exam: See Below Exam Limited By: No Limitations General Appearance: Alert, WD/WN, No Apparent Distress Eye Exam: Bilateral Eye: EOMI, Normal Inspection Ears: Normal External Exam, Hearing Grossly Normal Nose: Normal Inspection Throat/Mouth: Normal Inspection, Normal Lips, Normal Voice, No Airway Compromise Head: Atraumatic, Normocephalic Neck: Normal Inspection, Full Range of Motion Respiratory/Chest: No Respiratory Distress, Lungs Clear, Normal Breath Sounds, No Accessory Muscle Use Cardiovascular: Normal Peripheral Pulses, Regular Rate, Rhythm, No Edema, No Gallop, No JVD, No Murmur, No Rub Peripheral Pulses: 3+: Radial (L), Radial (R), Femoral (L), Femoral (R), Popliteal (L), Popliteal (R), Posterior Tibial (L), Posterior Tibial (R), Dorsalis Pedis (L), Dorsalis Pedis (R) GI/Abdominal: Normal Bowel Sounds, Soft, Non-Tender, No Organomegaly, No Distention, No Abnormal Bruit, No Mass Back Exam: Normal Inspection, Full Range of Motion, NT Extremities: Normal Inspection, Normal Range of Motion, Non-Tender, No Pedal Edema, Normal Capillary Refill, Other (No visible abnormality to the left thigh, when compared to the right, such as swelling, erythema, ecchymosis, or carloz ira.) Neurological: Alert, Oriented, Normal Cognition, Sensory/Motor Deficit (The patient reports a decreased sensation to light palpation of the anterior, lateral, and posterior left thigh. There is a sharp demarcation delineating normal sensation to his medial left thigh. Normal sensation to the remainder of his left lower extremity.) Psychiatric: Normal Affect Skin Exam: Warm, Dry, Intact, Normal Color, No Rash Course - Vital Signs Last Recorded V/S: Last Vital Signs Temp 37.0 C 05/27/20 21:05 Pulse 93 05/27/20 21:05 Resp 16 05/27/20 21:05 BP 133/94 H 05/27/20 21:05 Pulse Ox 99 05/27/20 21:05 - Orders/Labs/Meds Orders: Active Orders 24 hr Category Date Time Status Influenza Vaccine Charge [RC] .DISCHARGE Care 05/27/20 21:31 Ordered Pharmacy to Dose - InFluenza V [Pharmacy to Dose - Med 05/27/20 21:30 Once InFluenza Vaccine] 1 each IM ONETIME ONE Medication Orders Influenza Virus Vaccine (Pharmacy To Dose - Influenza Vaccine) 1 each IM ONETIME ONE Stop: 05/27/20 21:31 Meds: Medications Generic Name Dose Route Start Last Admin Trade Name Freq PRN Reason Stop Dose Admin Influenza Virus Vaccine 1 each 05/27/20 21:30 Pharmacy To Dose - Influenza Vaccine IM 05/27/20 21:31 ONETIME ONE - Re-Assessments/Exams Free Text/Narrative Re-Assessment/Exam: 05/27/20 21:39 As above, the patient appears to be suffering from left L4-S1 radiculopathy, most likely due to a herniated intervertebral disc versus facet arthropathy. The motor nerves are not involved. He will be treated with a 7-day course of prednisone, however, I would also like him to follow-up with his PCP this coming 05/30/2020, to arrange for an outpatient MRI of his lumbar spine. The patient will be given an influenza vaccine prior to discharge. Departure - Departure Time of Disposition: 21:41 Disposition: Home, Self-Care 01 Condition: Good Clinical Impression: Lumbar radiculopathy - Discharge Information *PRESCRIPTION DRUG MONITORING PROGRAM REVIEWED*: Not Applicable *COPY OF PRESCRIPTION DRUG MONITORING REPORT IN PATIENT RENNY: Not Applicable Referrals: Shweta Estrella NP [Primary Care Provider] - Additional Instructions: You were seen in the emergency room for a few weeks of tingling and numbness to the back, lateral side, and anterior left thigh. Based on your history and physical examination, you are suffering from lumbar radiculopathy. You have been started on the steroid prednisone, and a prescription for prednisone has been sent to the [facility] located in the [id number] store. Take 1 tablet of prednisone every evening, starting tomorrow evening, 05/28/2020, as prescribed. As discussed, we recommend that you follow-up with your PCP, Shweta Estrella NP, this coming 05/30/2020, to discuss getting an MRI of your lumbar spine. If any other problems, please do not hesitate to return to the ER. You were given an influenza vaccine during your ER visit. Sepsis Event Note (ED) - Evaluation Sepsis Screening Result: No Definite Risk - Focused Exam Vital Signs: Vital Signs Temp Pulse Resp BP Pulse Ox 05/27/20 21:05 37.0 C 93 16 133/94 H 99 - My Orders Last 24 Hours: My Active Orders 05/27/20 21:30 Pharmacy to Dose - InFluenza V [Pharmacy to Dose - InFluenza Vaccine] 1 each IM ONETIME ONE 05/27/20 21:31 Influenza Vaccine Charge [RC] .DISCHARGE - Assessment/Plan Last 24 Hours: My Active Orders 05/27/20 21:30 Pharmacy to Dose - InFluenza V [Pharmacy to Dose - InFluenza Vaccine] 1 each IM ONETIME ONE 05/27/20 21:31 Influenza Vaccine Charge [RC] .DISCHARGE
[2020-05-27] MEDS ORDERED: FLU VACC QS2020-21(6MOS UP)/PF 60 MCG/0.5 ML SYRINGE IM ONE (21:45)
== END 2020-05-27 21:51 | disposition home or self-care (01) ==
LOC: JD.ED 20:56
DX: M54.16 Radiculopathy, lumbar region (principal); I10 Essential (primary) hypertension; F17.210 Nicotine dependence, cigarettes, uncomplicated; Z23 Encounter for immunization; Z91.048 Other nonmedicinal substance allergy status
CPT/HCPCS: 90471; 90686; 99283; J7512; G0008

== ENCOUNTER 2021-03-05 17:14 | Emergency (ER) | payer MEDICAID ==
[2021-03-05 17:31] VITALS: BP 137/83; PULSE 105
[2021-03-05] MEDS ORDERED: Lidocaine 1% 10 ML MDV INJECT ONE (17:32)
--- NOTE | 2021-03-05 18:35 | EDM.PDOC ---
ED HPI GENERAL MEDICAL PROBLEM - General Chief Complaint: Laceration Stated Complaint: RT HAND LAC Time Seen by Provider: 03/05/21 17:38 Source of Information: Reports: Patient, RN Notes Reviewed History Limitations: Reports: No Limitations - History of Present Illness INITIAL COMMENTS - FREE TEXT/NARRATIVE: Patient is a 36-year-old male presenting to the emergency department complaints of laceration to the medial aspect of his right hand. Reports that he was changing brake pads when he cut himself. He is up-to-date on his tetanus vaccination. Denies any numbness or tingling. He has full movement of the hand. Right Hand Pain Score (Numeric/FACES): 3 - Related Data Allergies Allergy/AdvReac Type Severity Reaction Status Date / Time grass pollen Allergy Swelling Verified 03/05/21 17:31 Home Meds: Home Meds oxyCODONE HCl/Acetaminophen [Percocet 10-325 mg Tablet] 1 tab PO BID 04/24/20 [History] Zolpidem [Ambien] 10 mg PO BEDTIME 03/05/21 [History] Past Medical History HEENT History: Reports: Impaired Vision Cardiovascular History: Reports: Hypertension Respiratory History: Reports: Bronchitis, Recurrent, Pneumonia, Recurrent Gastrointestinal History: Reports: GERD, PUD Genitourinary History: Reports: Other (See Below) Musculoskeletal History: Reports: Back Pain, Chronic, Fracture Neurological History: Reports: Head Trauma, Seizure Psychiatric History: Reports: Addiction, Depression, PTSD Hematologic History: Reports: Iron Deficiency - Infectious Disease History Infectious Disease History: Reports: Chicken Pox - Past Surgical History HEENT Surgical History: Reports: Oral Surgery GI Surgical History: Reports: EGD Musculoskeletal Surgical History: Reports: ORIF Social & Family History - Family History Family Medical History: No Pertinent Family History Cardiac: Reports: CAD Endocrine/Metabolic: Reports: Other (See Below) Other Endocrine/Metabolic Family History: lupus, fibromyalgia - Tobacco Use Tobacco Use Status *Q: Current Every Day Tobacco User Years of Tobacco use: 20 Packs/Tins Daily: 1 - Caffeine Use Caffeine Use: Reports: Coffee, Energy Drinks, Soda - Recreational Drug Use Recreational Drug Use: No - Living Situation & Occupation Living situation: Reports: (), with Significant Other (Girlfriend) Occupation: Unemployed ED ROS GENERAL - Review of Systems Review Of Systems: Comprehensive ROS is negative, except as noted in HPI. ED EXAM, SKIN/RASH Exam: See Below Exam Limited By: No Limitations General Appearance: Alert, WD/WN, No Apparent Distress Respiratory/Chest: No Respiratory Distress, Lungs Clear, Normal Breath Sounds, No Accessory Muscle Use, Chest Non-Tender Cardiovascular: Normal Peripheral Pulses, Regular Rate, Rhythm, No Edema, No Gallop, No JVD, No Murmur, No Rub Extremities: Other (3 cm laceration to the medial aspect of the right hand proximal to the fifth MCP joint. Patient has full range of motion of the fingers and hand. Full strength to flexion and extension of the fifth digit.) Neurological: Alert, Oriented, CN II-XII Intact, Normal Cognition, Normal Gait, Normal Reflexes, No Motor/Sensory Deficits Psychiatric: Normal Affect, Normal Mood ED SKIN PROCEDURES - Laceration/Wound Repair Right Medial Hand Appearance: Subcutaneous Distal NVT: Neuro & Vascular Intact, No Tendon Injury Anesthetic Type: Local Local Anesthesia - Lidocaine (Xylocaine): 1% Plain Local Anesthetic Volume: 2cc Skin Prep: Chlorhexidine (Hibiciens), Providone-Iodine (Betadine), Saline, Sterile Drape Exploration/Debridement/Repair: Wound Explored, In a Bloodless Field, No Foreign Material Found Closed with: Sutures Lac/Wound length In cm: 3 Suture Size: 4-0 # of Sutures: 6 Suture Type: Nylon Sterile Dressing Applied: Nurse Tetanus Status Addressed: Yes Complications: No Course - Vital Signs Last Recorded V/S: Last Vital Signs Temp 98.5 F 03/05/21 17:29 Pulse 105 H 03/05/21 17:29 Resp 18 03/05/21 17:29 BP 137/83 03/05/21 17:29 Pulse Ox 98 03/05/21 17:29 - Orders/Labs/Meds Meds: Medications Discontinued Medications Generic Name Dose Route Start Last Admin Trade Name Bladeq PRN Reason Stop Dose Admin Lidocaine HCl 10 ml 03/05/21 17:32 03/05/21 17:38 Lidocaine 1% 10 Ml Mdv INJECT 03/05/21 17:33 10 ml ONETIME ONE Administration Departure - Departure Time of Disposition: 18:34 Disposition: Home, Self-Care 01 Condition: Good Clinical Impression: Hand laceration Qualifiers: Encounter type: initial encounter Foreign body presence: without foreign body Laterality: right Qualified Code(s): S61.411A - Laceration without foreign body of right hand, initial encounter - Discharge Information *PRESCRIPTION DRUG MONITORING PROGRAM REVIEWED*: No *COPY OF PRESCRIPTION DRUG MONITORING REPORT IN PATIENT RENNY: No Instructions: Laceration Care, Adult Referrals: Shweta Estrella NP [Primary Care Provider] - Additional Instructions: You were seen in the emergency department today for a laceration to your right hand. The wound was cleansed and closed with 6 sutures. These should stay intact for 7-10 days. After that time they may be removed in the clinic by a nurse. Keep the wound clean and dry. Wash with normal soap and water twice daily. Do not submerge the wound in water. Watch for signs of infection including increased redness, swelling, or purulent drainage. If these should occur, you should be seen either in the clinic or in the emergency department as antibiotic treatment may be needed. Return to the ER as needed. Sepsis Event Note (ED) - Focused Exam Vital Signs: Vital Signs Temp Pulse Resp BP Pulse Ox 03/05/21 17:29 98.5 F 105 H 18 137/83 98
== END 2021-03-05 18:45 | disposition home or self-care (01) ==
LOC: JD.ED 17:14
DX: S61.411A Laceration without foreign body of right hand, initial encounter (principal); I10 Essential (primary) hypertension; K21.9 Gastro-esophageal reflux disease without esophagitis; Z91.048 Other nonmedicinal substance allergy status; Z72.0 Tobacco use; W26.8XXA Contact with other sharp object(s), not elsewhere classified, initial encounter
CPT/HCPCS: 12002; 99282-25

== ENCOUNTER 2021-03-07 12:03 | Emergency (ER) | payer MEDICAID ==
[2021-03-07 12:17] VITALS: BP 133/87; PULSE 118
--- NOTE | 2021-03-07 12:57 | EDM.PDOCBH ---
ED HPI GENERAL MEDICAL PROBLEM - General Chief Complaint: Behavioral/Psych Stated Complaint: HARMFUL THOUGHTS Time Seen by Provider: 03/07/21 12:27 Source of Information: Reports: Patient, RN Notes Reviewed, Other (staff from [facility]) History Limitations: Reports: No Limitations - History of Present Illness INITIAL COMMENTS - FREE TEXT/NARRATIVE: Patient is a 36-year-old male who presents to the ER with [facility] human services staff for his harmful thoughts. Patient states that he has chronic pain, and that he would like to just go to sleep. This seems to be a common the me with this particular gentleman. He has been seen in the ER a few times, at one time he took quite a bit of his pills and he told his girlfriend it was an attempt to end his life so he could avoid a fight. He states that he has never wanted to end his life, and he does not harbor any plans to end his life. He is not hearing things that are not there, not seeing things in it there, patient is very tearful, and has a very flat affect. Patient denies any other sick-like symptoms, fever/chills, cough/shortness of breath, nausea/vomiting/diarrhea. Patient is admittedly an everyday drinker, he states he drinks to "go to sleep". States that he likes 100 proof liquor, like Everclear and 99 fruit variety shooters. He states that he has drink about 13 of these in order to go to sleep. He states that his last intake of alcohol was around 2 hours ago. Patient states that he has tried also to talk to counselors in the past, but cannot find any when he really likes to talk to. He did voice his concerns with his mother today, and she was concerned about his wellbeing so she made him come to the ER for evaluation. Patient states he has tried quitting alcohol in the past and has been to multiple treatment facilities. Patient states that he did enjoy 9 months of sobriety at one point. Back Pain Score (Numeric/FACES): 8 - Related Data Allergies Allergy/AdvReac Type Severity Reaction Status Date / Time grass pollen Allergy Swelling Verified 03/07/21 12:17 Home Meds: Home Meds oxyCODONE HCl/Acetaminophen [Percocet 10-325 mg Tablet] 1 tab PO TID 04/24/20 [History] Zolpidem [Ambien] 10 mg PO BEDTIME 03/05/21 [History] Ibuprofen 800 mg PO TID 03/07/21 [History] Past Medical History HEENT History: Reports: Impaired Vision Cardiovascular History: Reports: Hypertension Respiratory History: Reports: Bronchitis, Recurrent, Pneumonia, Recurrent Gastrointestinal History: Reports: GERD, PUD Musculoskeletal History: Reports: Back Pain, Chronic, Fracture Neurological History: Reports: Head Trauma, Seizure Psychiatric History: Reports: Addiction, Depression, PTSD, Suicidal Ideation Hematologic History: Reports: Iron Deficiency - Infectious Disease History Infectious Disease History: Reports: Chicken Pox - Past Surgical History HEENT Surgical History: Reports: Oral Surgery GI Surgical History: Reports: EGD Musculoskeletal Surgical History: Reports: ORIF Social & Family History - Family History Family Medical History: No Pertinent Family History Cardiac: Reports: CAD Endocrine/Metabolic: Reports: Other (See Below) Other Endocrine/Metabolic Family History: lupus, fibromyalgia - Tobacco Use Tobacco Use Status *Q: Current Every Day Tobacco User Tobacco Use Within Last Twelve Months: Cigarettes Years of Tobacco use: 22 Packs/Tins Daily: 1.5 Used Tobacco, but Quit: No Smoking Cessation Information Provided To Patient: Patient Refused - Caffeine Use Caffeine Use: Reports: Coffee, Energy Drinks, Soda, Tea - Alcohol Use Alcohol Use History: Yes Days Per Week of Alcohol Use: 7 Days Per Week of Alcohol Use Comment: Drinks hard liquor, likes the 99 fruit shooters and anything that is 100 proof Alcohol Use Frequency: Daily - Recreational Drug Use Recreational Drug Use: Yes Drug Use in Last 12 Months: No Recreational Drug Type: Reports: Marijuana/Hashish (Used to smoke marijuana, but states it made him paranoid so he stopped.), Methamphetamine (States he tried this once, but did not like the way it makes him feel.) - Living Situation & Occupation Living situation: Reports: with Significant Other (Girlfriend) Occupation: Unemployed ED ROS GENERAL - Review of Systems Review Of Systems: Comprehensive ROS is negative, except as noted in HPI. ED EXAM, BEHAVIORAL HEALTH - Physical Exam Exam: See Below Exam Limited By: No Limitations General Appearance: Alert, WD/WN, No Apparent Distress Eye Exam: Bilateral Eye: EOMI, Normal Inspection, PERRL Respiratory/Chest: No Respiratory Distress, Lungs Clear, Normal Breath Sounds, No Accessory Muscle Use, Chest Non-Tender Cardiovascular: Normal Peripheral Pulses, Regular Rate, Rhythm, No Edema GI/Abdominal: Normal Bowel Sounds, Soft, Non-Tender, No Distention, No Mass Extremities: Normal Inspection, Normal Capillary Refill Neurological: Alert, Normal Cognition, No Motor/Sensory Deficits Psychiatric: Alert, Depressed Mood, Flat Affect, Tearful, Other (states that he would like to just go to sleep-he states he would never take meds to end his life.). No: Homicidal Thoughts, Suicidal Plan, Auditory Hallucinations, Visual Hallucinations Skin Exam: Warm, Dry, Intact, Normal color, No rash, Other (Pt has sutures placed to R hand from injury sustained a few days ago) COURSE, BEHAVIORAL HEALTH COMP - Course Vital Signs: Last Vital Signs Temp 97.2 F 03/07/21 12:13 Pulse 118 H 03/07/21 12:13 Resp 16 03/07/21 12:13 BP 133/87 03/07/21 12:13 Pulse Ox 93 L 03/07/21 12:13 Discharge vs Psych Eval/Treatment:: 03/07/21 13:00 Patient presents to the ER for a mental health evaluation. It does appear the patient has been drinking. A staff member from [facility] human services is in to talk with the patient, we are going to try to figure out a plan that would best suit this patient, he is try to go to the [facility] in the past and he just does not think it was very helpful. We will go ahead and order labs are otherwise after he has been assessed by [facility] to see what he would like to do. At this point in time, it does appear as if he is intoxicated, but he is able to walk and talk appropriately and if he had someone to go home with, he could be discharged from this ER and do outpatient follow-up with [facility]. 03/07/21 13:59 I was in the room to talk with the patient, his mother, and Chrissy from [facility]. The patient will be discharged at this time, as he is posing no immediate threat to his life or others. Although he is an alcoholic and does l sanjuana to drink, this is not necessarily a reason to keep him in the ER any longer. Departure - Departure Time of Disposition: 13:59 Disposition: Home, Self-Care 01 Condition: Fair Clinical Impression: Alcohol intoxication Qualifiers: Complication of substance-induced condition: uncomplicated Qualified Code(s): F10.920 - Alcohol use, unspecified with intoxication, uncomplicated - Discharge Information *PRESCRIPTION DRUG MONITORING PROGRAM REVIEWED*: No *COPY OF PRESCRIPTION DRUG MONITORING REPORT IN PATIENT RENNY: No Instructions: Alcohol Intoxication, [id number] Referrals: Shweta Estrella NP [Primary Care Provider] - Forms: ED Department Discharge Additional Instructions: You were evaluated in the ER today for your alcohol abuse, and harmful thoughts. At today's visit, although you are intoxicated, you are not posing a threat to yourself or your life imminently, and will be released home and will need follow-up with [facility] for ongoing outpatient management. I do recommend that you stop drinking, as this does seem to be your only coping mechanism in your life, and it does not seem to be providing you much benefit. Once you have stopped drinking, for at least 24 hours or otherwise, we may at that time try to find you somewhere so you can detox from alcohol, but you will need to be completely sober in order for us to do this. Please follow-up with [facility] staff, and ongoing manner to try to find a counselor otherwise to help work through your mental health issues. Please return to the ER at any time if symptoms change or worsen. Sepsis Event Note (ED) - Evaluation Sepsis Screening Result: No Definite Risk - Focused Exam Vital Signs: Vital Signs Temp Pulse Resp BP Pulse Ox 03/07/21 12:13 97.2 F 118 H 16 133/87 93 L
== END 2021-03-07 14:09 | disposition home or self-care (01) ==
LOC: JD.ED 12:03
DX: F10.920 Alcohol use, unspecified with intoxication, uncomplicated (principal); F17.210 Nicotine dependence, cigarettes, uncomplicated
CPT/HCPCS: 99283

== ENCOUNTER 2021-03-23 14:35 | Emergency (ER) | payer MEDICAID ==
[2021-03-23 14:43] VITALS: BP 138/88; PULSE 84
[2021-03-23] MEDS ORDERED: Metoclopramide 10 MG/2 ML SDV IVPUSH ONE (14:55)
[2021-03-23] MEDS ORDERED: HYDROmorphone 1 MG/ML Syringe IVPUSH ONE (14:55)
[2021-03-23] MEDS ORDERED: methylPREDNISolone Sodium Succinate 125 MG/2 ML SDV IVPUSH ONE (14:57)
--- NOTE | 2021-03-23 14:58 | EDM.PDOC ---
ED HPI GENERAL MEDICAL PROBLEM - General Chief Complaint: Back Pain or Injury Stated Complaint: [facility] Time Seen by Provider: 03/23/21 14:50 Source of Information: Reports: Patient History Limitations: Reports: No Limitations - History of Present Illness INITIAL COMMENTS - FREE TEXT/NARRATIVE: 36-year-old male presents to the ED with sudden onset of severe right low back pain radiating down his right thigh but not below the knee. He does have some paresthesias however in his right toes. He states he has had low back pain and spasms that have lasted a minute or 2 in the past but never to this severity. No known injuries slips or falls. 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 He states he was walking outside close to his truck when he developed sudden onset of severe pain in his right lower back and buttock area that dropped him to the ground. It took a long time for him to help himself up along hit the edge of his truck but he could not get into the truck. He states injury occurred about 3 hours prior to arrival in the ED. Paramedics did start an IV and apparently did try to administer some Versed IV but patient states it splashed all over and he got no medication. Pain is a 10 out of 10. It is constant throbbing burning in intensity. It is felt mostly in the right buttock and posterior lateral thigh i.e. L5 nerve root distribution Onset: Today, Sudden Onset Date: 03/23/21 Onset Time: 12:30 Duration: Hour(s):, Constant, Getting Worse Location: Reports: Back (Right lower back radiating to the right buttock and posterior thigh but not below the knee.), Lower Extremity, Right Quality: Reports: Ache, Burning, Throbbing Severity: Severe (And a 10) Improves with: Reports: Rest Worsens with: Reports: Movement Context: Denies: Activity (Attempt to lift his leg or bear weight makes the pain worse), Exercise, Lifting, Sick Contact, Trauma, Other Associated Symptoms: Denies: No Other Symptoms, Confusion, Chest Pain, cough w sputum, Diaphoresis, Fever/Chills, Headaches, Loss of Appetite, Malaise, Nausea/Vomiting, Seizure, Shortness of Breath, Syncope, Weakness Treatments PHARMACOLOGY ASSOCIATE: Reports: Other (see below) (Paramedics did start an IV but apparently he did not receive any medications) Lower Back Pain Score (Numeric/FACES): 6 - Related Data Allergies Allergy/AdvReac Type Severity Reaction Status Date / Time grass pollen Allergy Swelling Verified 03/23/21 14:42 Home Meds: Home Meds Diclofenac Sodium [Voltaren] 75 mg PO BIDMEALS #16 tab.cr 03/23/21 [Rx] oxyCODONE HCl/Acetaminophen [Percocet 5-325 mg Tablet] 1 - 2 each PO Q4H PRN #20 tablet 03/23/21 [Rx] predniSONE [Prednisone] 20 mg PO ASDIRECTED #15 tablet 03/23/21 [Rx] Past Medical History HEENT History: Reports: Impaired Vision Cardiovascular History: Reports: Hypertension Respiratory History: Reports: Bronchitis, Recurrent, Pneumonia, Recurrent Gastrointestinal History: Reports: GERD, PUD Genitourinary History: Reports: Other (See Below) Musculoskeletal History: Reports: Back Pain, Chronic, Fracture Neurological History: Reports: Head Trauma, Seizure Psychiatric History: Reports: Addiction, Depression, PTSD, Suicidal Ideation Hematologic History: Reports: Iron Deficiency - Infectious Disease History Infectious Disease History: Reports: Chicken Pox - Past Surgical History HEENT Surgical History: Reports: Oral Surgery GI Surgical History: Reports: EGD Musculoskeletal Surgical History: Reports: ORIF Social & Family History - Family History Family Medical History: No Pertinent Family History Cardiac: Reports: CAD Endocrine/Metabolic: Reports: Other (See Below) Other Endocrine/Metabolic Family History: lupus, fibromyalgia - Tobacco Use Tobacco Use Status *Q: Current Every Day Tobacco User Years of Tobacco use: 20 Packs/Tins Daily: 1 - Caffeine Use Caffeine Use: Reports: Coffee, Energy Drinks, Soda, Tea - Recreational Drug Use Recreational Drug Use: No - Living Situation & Occupation Living situation: Reports: with Significant Other (Girlfriend) Occupation: Unemployed ED ROS GENERAL - Review of Systems Review Of Systems: See Below Constitutional: Denies: Fever, Chills, Malaise, Weakness, Fatigue, Weight Loss HEENT: Reports: No Symptoms Respiratory: Reports: No Symptoms Cardiovascular: Reports: No Symptoms Endocrine: Reports: No Symptoms GI/Abdominal: Reports: No Symptoms : Reports: No Symptoms Musculoskeletal: Reports: Back Pain (Occasional problems with low back pain but nothing significant. No previous low back surgery) Skin: Reports: No Symptoms Neurological: Reports: No Symptoms Psychiatric: Reports: No Symptoms Hematologic/Lymphatic: Reports: No Symptoms Immunologic: Reports: No Symptoms ED EXAM,LOWER BACK PAIN/INJURY - Physical Exam Exam: See Below Exam Limited By: No Limitations General Appearance: Alert, WD/WN, Moderate Distress, Other (Temperature is 36.6 degrees. Heart rate 84 and sinus respiratory 16 with O2 sats of 98% room air BP 1 3888.) Eye Exam: Bilateral Eye: Normal Inspection, PERRL Cardiovascular: Normal Peripheral Pulses, Regular Rate, Rhythm, No Edema, No Gallop, No Murmur, No Rub GI/Abdominal: Normal Bowel Sounds, Soft, Non-Tender, No Organomegaly, No Distention, Pelvis Stable, Other (No surgical scars) Back Exam: Decreased Range of Motion, Muscle Spasm (Diffuse right-sided paraspinal muscle spasm from thoracic 10 to lumbar 1. Point of maximal tenderness is at the L4-L5 and L5-S1 facet joint on the right side. There is significant pain throughout the right sacroiliac joint as compared to the left as well.), Paraspinal Tenderness (Right side) Extremities: Normal Inspection, No Pedal Edema, Other. No: Normal Range of Motion Neurological: Alert, Normal Dorsiflexion, CN II-XII Intact, Oriented x 3. No: Normal Gait (Not able to evaluate) DTR - Lower Extremities: 0: Ankle (R), Ankle (L), 2+: Knee (R), Knee (L) Psychiatric: Anxious Skin Exam: Warm, Dry, Intact, Normal Color, No Rash Course - Vital Signs Last Recorded V/S: Last Vital Signs Temp 36.6 C 03/23/21 14:40 Pulse 84 03/23/21 14:40 Resp 16 03/23/21 14:40 BP 138/88 03/23/21 14:40 Pulse Ox 98 03/23/21 14:40 - Orders/Labs/Meds Orders: Active Orders 24 hr Category Date Time Status Dextrose 5%-0.9% NaCl [Dextrose 5%-Normal Saline] 1,000 Med 03/23/21 15:00 Active ml IV ASDIRECTED Medication Orders Dextrose/Sodium Chloride (Dextrose 5%-Normal Saline) 1,000 mls @ 150 mls/hr IV ASDIRECTED ELIZABETH Last Admin: 03/23/21 15:11 Dose: 150 mls/hr Documented by: PAPI Meds: Medications Generic Name Dose Route Start Last Admin Trade Name Flip PRN Reason Stop Dose Admin Dextrose/Sodium Chloride 1,000 mls @ 150 mls/hr 03/23/21 15:00 03/23/21 15:11 Dextrose 5%-Normal Saline IV 150 mls/hr ASDIRECTED ELIZABETH Administration Discontinued Medications Generic Name Dose Route Start Last Admin Trade Name Flip PRN Reason Stop Dose Admin Diazepam 5 mg 03/23/21 14:56 03/23/21 15:11 Diazepam 10 Mg/2 Ml Syringe IVPUSH 03/23/21 14:57 5 mg ONETIME ONE Administration Diazepam 5 mg 03/23/21 17:04 03/23/21 17:22 Diazepam 10 Mg/2 Ml Syringe IVPUSH 03/23/21 17:05 5 mg ONETIME ONE Administration Hydromorphone HCl 1 mg 03/23/21 14:55 03/23/21 15:11 Hydromorphone 1 Mg/Ml Syringe IVPUSH 03/23/21 14:56 1 mg ONETIME ONE Administration Hydromorphone HCl 0.5 mg 03/23/21 17:04 03/23/21 17:22 Hydromorphone 0.5 Mg/0.5 Ml Syringe IVPUSH 03/23/21 17:05 0.5 mg ONETIME ONE Administration Methylprednisolone Sodium Succinate 125 mg 03/23/21 14:57 03/23/21 15:11 Methylprednisolone Sodium Succinate 125 Mg/2 Ml Sdv IVPUSH 03/23/21 14:58 125 mg ONETIME ONE Administration Metoclopramide HCl 10 mg 03/23/21 14:55 03/23/21 15:11 Metoclopramide 10 Mg/2 Ml Sdv IVPUSH 03/23/21 14:56 10 mg ONETIME ONE Administration - Radiology Interpretation Free Text/Narrative:: 36-year-old male presents to the ED with sudden onset of severe right-sided low back pain that dropped him to the ground about 12:30 PM today. Patient subsequently has not been able to stand or put weight on his right leg without exacerbating the severe spastic pain in his right lower back. He has had occasional problems of low back pain but nothing ever to this severity. No recent known trauma. 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 Pain currently is in his right lower back right buttock and rating down the posterior lateral aspect of his right thigh to the knee. He reports numbness and tingling in his toes on the right side as well. He feels that he could tolerate being moved over for CT of his lumbar spine and I will therefore put an order in for this at this time. - Re-Assessments/Exams Free Text/Narrative Re-Assessment/Exam: 03/23/21 15:43 patient has had intravenous medication approximate 25 minutes ago. He believes to be able tolerate x-rays at this time. He will actually have CT of his lumbar spine since he is unable to roll or stand at this time. 03/23/21 16:29 CT scan of the lumbar spine has been completed without contrast. Does not reveal any evidence of a compression fracture. There are Schmorl's nodes particular at the T12-L1 levels. There is slight con vacs disc bulge at all levels from lumbar 1 to lumbar 5. There is no significant encroachment of the neural foramina to suggest nerve root entrapment. Facet joints appear to be within normal limits. The radiologist has compared the CT with an MRI report on his lumbar spine done June 06. Reports at the T11-12 level there is a posterior disc preserved. Minimal Schmorl's node deformity is seen. No central canal stenosis or neuroforaminal stenosis is seen. Similar findings are noted at the T12-L1 level as mentioned above. Mild disc space narrowing is noted. Posterior disc is preserved. Again no central canal or neuroforaminal stenosis is seen. At the L1-2 level fairly severe disc space narrowing is seen with mild vacuum disc phenomenon. Slight endplate concavities are seen compatible with mild disc protrusions into the endplates. Posterior disc is preserved. No central canal stenosis or neuroforamina foraminal stenosis is seen. At the L2-3 level posterior disc is preserved. No central canal stenosis or neural foraminal stenosis noted. At the L3-4 level posterior disc is preserved no central canal stenosis or neuroforaminal stenosis is seen. Similarly at the L4- L5 level posterior disc has a planar margin. No central canal stenosis or neuroforaminal stenosis is seen. Minimal degenerative apophyseal changes appreciated. At the L5-S1 level posterior disc is preserved. Minimal degenerative degenerative apophyseal changes seen. No central canal stenosis or neuroforaminal stenosis is seen. No fractures are appreciated or no abnormal subluxation is identified. I discussed the findings with the patient and we will try and work on getting him up and see if he is able to weight-bear. The plan will be to discharge him home on prednisone 20 mg twice daily for the next 5 days and then once in the morning only for another 5 days. Percocet tabs 5 325 mg strength 1 or 2 every 4-6 hours necessary for pain relief x20 tablets. Voltaren 75 mg twice daily with breakfast and supper for the next 8 days to relieve pain and inflammation. 03/23/21 17:05 Attempts to set him up caused increased spasm in his right lower back. He will therefore require further analgesia by way of Dilaudid 0.5 mg IV and repeat Valium 5 mg IV. 03/23/21 18:09 patient did much better when I helped him up off the bed at this time. He still has some spasm and difficulty standing fully erect but is much improved compared to when he came into the ED. He will be discharged home at this time. Departure - Departure Time of Disposition: 18:02 Disposition: Home, Self-Care 01 Condition: Fair Clinical Impression: Lumbar back pain with radiculopathy affecting right lower extremity, Sacroiliitis, Mechanical low back pain - Discharge Information *PRESCRIPTION DRUG MONITORING PROGRAM REVIEWED*: Not Applicable *COPY OF PRESCRIPTION DRUG MONITORING REPORT IN PATIENT RENNY: Not Applicable Prescriptions: oxyCODONE HCl/Acetaminophen [Percocet 5-325 mg Tablet] 1 - 2 each PO Q4H PRN #20 tablet PRN Reason: pain relief. predniSONE [Prednisone] 20 mg PO ASDIRECTED #15 tablet Diclofenac Sodium [Voltaren] 75 mg PO BIDMEALS #16 tab.cr Instructions: Acute Back Pain, Adult Referrals: PCP,None [Primary Care Provider] - Forms: ED Department Discharge, ED Return to Work/School Form Additional Instructions: Evaluation in the emergency room today in regards to development of severe right low back pain radiating down the right buttock and posterior lateral right leg but not below the knee. CT of the lower back carried out reveals no bony injuries or subluxation which means slippage of [id number]. There is a bad disc between thoracic 12 and lumbar 1 vertebra in the upper lower back but no sign of any disc herniation compressing the spinal cord. Current pain into the right buttock is radiation from the lower back facet joint inflammation. You were treated in the emergency room with intravenous pain medication and Valium for muscle spasm. Treatment at home is activity as tolerated. Percocet tabs 5/325 mg strength 1 or 2 every 4-6 hours necessary for pain relief. If you need the pain medicine for more than a few days they will cause constipation. Suggest picking up some MiraLAX powder and taking 17 g or 1 scoop daily with beverage of choice as it has no taste and this will prevent constipation. You will need steroid prednisone 20 mg twice daily for the next 5 days and then once in the morning only for another 5 days starting tomorrow morning at breakfast. Voltaren 75 mg twice daily for the next 8 days with the first tab to be taken with some food in your stomach tonight to relieve pain and inflammation. Expect about 7 days to return to normal range of motion of your lower back. Return to medical care sooner if the pain is not markedly improved in 3 to 5 days time Sepsis Event Note (ED) - Evaluation Sepsis Screening Result: No Definite Risk - Focused Exam Vital Signs: Vital Signs Temp Pulse Resp BP Pulse Ox 03/23/21 14:40 36.6 C 84 16 138/88 98 - My Orders Last 24 Hours: My Active Orders 03/23/21 15:00 Dextrose 5%-0.9% NaCl [Dextrose 5%-Normal Saline] 1,000 ml IV ASDIRECTED - Assessment/Plan Last 24 Hours: My Active Orders 03/23/21 15:00 Dextrose 5%-0.9% NaCl [Dextrose 5%-Normal Saline] 1,000 ml IV ASDIRECTED
[2021-03-23] MEDS ORDERED: Dextrose 5%-0.9% NaCl 1,000 ML IV SCH (15:00)
--- NOTE | 2021-03-23 16:28 | CT ---
CT lumbar spine Technique: Multiple axial sections were obtained from the mid T11 level inferiorly through the L5-S1 disc. Reconstructed coronal and sagittal images were obtained. Comparison: Prior MRI lumbar spine study of 06/06/20. Findings: T11-12: Posterior disc is preserved. Minimal Schmorl's node deformity is seen. No central canal stenosis or neural foraminal stenosis is seen. T12-L1: Mild Schmorl's node deformity is seen. Mild disc space narrowing is noted. Posterior disc is preserved. No central canal stenosis or neural foraminal stenosis is seen. L1-2: Fairly severe disc space narrowing is seen with mild vacuum disc phenomena. Slight endplate concavities are seen compatible with mild disc protrusions into the endplates. Posterior disc is preserved. No central canal stenosis or neural foraminal stenosis is seen. L2-3: Posterior disc is preserved. No central canal stenosis or neural foraminal stenosis is seen. L3-4: Posterior disc is preserved. No central canal stenosis or neural foraminal stenosis is seen. L4-5: Posterior disc has a planar margin. No central canal stenosis or neural foraminal stenosis is seen. Minimal degenerative apophyseal change is seen. L5-S1: Posterior disc is preserved. Minimal degenerative apophyseal change is seen. No central canal stenosis or neural foraminal stenosis is seen. No fracture is appreciated. No abnormal subluxation is seen. Impression: 1. Minimal degenerative change as noted above. 2. No focal disc herniation is seen. No central canal stenosis or neural foraminal stenosis is seen. 3. No acute fracture or subluxation is seen. Diagnostic code #2
[2021-03-23] MEDS ORDERED: HYDROmorphone 0.5 MG/0.5 ML Syringe IVPUSH ONE (17:04)
== END 2021-03-23 18:10 | disposition home or self-care (01) ==
LOC: JD.ED 14:35
DX: M54.16 Radiculopathy, lumbar region (principal); M46.1 Sacroiliitis, not elsewhere classified; I10 Essential (primary) hypertension; Z91.09 Other allergy status, other than to drugs and biological substances; Z72.0 Tobacco use
CPT/HCPCS: 72131; 96374; 96375; 96376; 99284; J1170; J2765; J2930; J3360; J7042

== ENCOUNTER 2021-08-23 18:55 | Emergency (ER) | payer MEDICAID ==
[2021-08-23 19:14] VITALS: BP 142/94; PULSE 104
[2021-08-23] MEDS ORDERED: Ondansetron 4 MG/2 ML SDV IVPUSH ONE (19:38)
[2021-08-23] MEDS ORDERED: Sodium Chloride 0.9% 1,000 ML IV ONE (19:38)
[2021-08-24 03:11] LABS: ACETAMINOPHEN 0 ug/mL (10-30)
== END 2021-08-23 21:05 | disposition left against medical advice (07) ==
LOC: JD.ED 18:55
DX: F10.229 Alcohol dependence with intoxication, unspecified (principal); R79.89 Other specified abnormal findings of blood chemistry; I10 Essential (primary) hypertension; Z91.048 Other nonmedicinal substance allergy status; Z72.0 Tobacco use; Z20.822 Contact with and (suspected) exposure to COVID-19; Y90.5 Blood alcohol level of 100-119 mg/100 ml
CPT/HCPCS: 36415; 80053; 80143; 80179; 80307; 83735; 84443; 85025; 87635; 96374; 99284; J2405; J7030; U0002

== ENCOUNTER 2022-08-17 17:37 | Emergency (ER) | payer MEDICAID ==
[2022-08-17 18:02] VITALS: BP 123/87; PULSE 94
[2022-08-17] MEDS ORDERED: Sodium Chloride 0.9% 10 ML Syringe FLUSH PRN (18:12)
== END 2022-08-17 20:45 | disposition home or self-care (01) ==
LOC: JD.ED 17:37
DX: R56.9 Unspecified convulsions (principal); I10 Essential (primary) hypertension; K21.9 Gastro-esophageal reflux disease without esophagitis; Z91.048 Other nonmedicinal substance allergy status; Z72.0 Tobacco use
CPT/HCPCS: 36415; 70450; 80053; 80306; 80307; 82550; 83735; 84100; 85025; 99284; J3490

== ENCOUNTER 2022-09-03 17:23 | Emergency (ER) | payer MEDICAID ==
[2022-09-03] MEDS ORDERED: HYDROmorphone 1 MG/ML Syringe IM ONE (18:17)
[2022-09-03 18:48] VITALS: BP 130/78; PULSE 89
== END 2022-09-03 18:43 | disposition home or self-care (01) ==
LOC: JD.ED 17:23
DX: M54.41 Lumbago with sciatica, right side (principal); I10 Essential (primary) hypertension; Z91.048 Other nonmedicinal substance allergy status
CPT/HCPCS: 96372; 99283; J1170

== ENCOUNTER 2022-12-12 14:20 | Emergency (ER) | payer MEDICAID ==
[2022-12-12 14:45] VITALS: BP 121/65; PULSE 96
[2022-12-12] MEDS ORDERED: Ondansetron 4 MG Tab.DIS PO ONE (15:12)
[2022-12-12 15:55] LABS: BASOPHILS ABSOLUTE AUTO 0.01 K/mm3 (0.01-0.08); BASOPHILS PERCENT AUTO 0.1 % (0.1-1.2); EOSINOPHILS ABSOLUTE AUTO 0.03 K/mm3 (0.04-0.54); EOSINOPHILS PERCENT AUTO 0.4 (0.8-7.0); HEMATOCRIT 39.7 % (40.1-51.0); HEMOGLOBIN 13.7 gm/dl (13.7-17.5); IMMATURE GRAN ABSOLUTE AUTO 0.02 K/mm3 (0.00-0.10); IMMATURE GRAN PERCENT AUTO 0.3 % (<=1.0); LYMPHOCYTES ABSOLUTE AUTO 3.34 K/mm3 (1.32-3.57); LYMPHOCYTES PERCENT AUTO 44.9 % (21.8-53.1); MEAN CORPUSCULAR HEMOGLOBIN 30.3 pg (25.7-32.2); MEAN CORPUSCULAR HGB CONC 34.5 g/dl (32.2-35.5); MEAN CORPUSCULAR VOLUME 87.8 fl (79.0-92.2); MEAN PLATELET VOLUME 9.4 fl (9.4-12.3); MONOCYTES ABSOLUTE AUTO 0.45 K/mm3 (0.30-0.82); NEUTROPHILS ABSOLUTE AUTO 3.59 K/mm3 (1.78-5.38); NEUTROPHILS PERCENT AUTO 48.3 % (34.0-67.9); PLATELET COUNT,PLT 243 K/mm3 (163-337); RED BLOOD CELL COUNT 4.52 M/mm3 (4.63-6.08); WHITE BLOOD CELL COUNT,WBC 7.44 K/mm3 (4.23-9.07)
[2022-12-12 16:25] LABS: A/G RATIO 1.3 (1-2); ANION GAP 12.2 (5-15); BILIRUBIN TOTAL 0.5 mg/dL (0.2-1.0); BUN/CREATININE RATIO 7.8 (14-18); CALCIUM 8.5 mg/dL (8.5-10.1); CREATININE 0.9 mg/dL (0.7-1.3); EST CRCL DRUG DOSING (CG) 112.38 mL/min; ETHANOL BLOOD MEDICAL 0.35 gm% (0.00); POTASSIUM,K 4.2 mEq/L (3.5-5.1); PROTEIN TOTAL,TP 7.2 g/dl (6.4-8.2); TSH 0.5 uIU/mL (0.358-3.74)
== END 2022-12-12 16:47 | disposition left against medical advice (07) ==
LOC: JD.ED 14:20
DX: F10.120 Alcohol abuse with intoxication, uncomplicated (principal); I10 Essential (primary) hypertension; K21.9 Gastro-esophageal reflux disease without esophagitis; Z91.048 Other nonmedicinal substance allergy status; Y90.1 Blood alcohol level of 20-39 mg/100 ml
CPT/HCPCS: 36415; 80053; 80143; 80179; 80307; 84443; 85025; 99284

== ENCOUNTER 2024-01-11 13:34 | Emergency (ER) | payer MEDICAID ==
[2024-01-11] MEDS: Amoxicillin/Clavulanate K 875-125 MG Tab PO ONE (14:15)
[2024-01-11] MEDS: Lidocaine 1% 10 ML MDV INJECT ONE (14:45)
[2024-01-11] MEDS: Ketorolac 60 MG/2 ML SDV IM ONE (15:45)
[2024-01-11 16:09] VITALS: BP 134/78; PULSE 86
== END 2024-01-11 16:04 | disposition home or self-care (01) ==
LOC: JD.ED 13:34
DX: S62.623A Displaced fracture of middle phalanx of left middle finger, initial encounter for closed fracture (principal); S61.451A Open bite of right hand, initial encounter; I10 Essential (primary) hypertension; F17.210 Nicotine dependence, cigarettes, uncomplicated; Z79.899 Other long term (current) drug therapy; Z79.891 Long term (current) use of opiate analgesic; Z91.048 Other nonmedicinal substance allergy status; W54.0XXA Bitten by dog, initial encounter
CPT/HCPCS: 12001; 73130; 73140; 96372; 99283; A9270; J1885; J3490